=== PATIENT | female | born 1965 | race Caucasian/White ===

== ENCOUNTER 2023-05-07 07:19 | Outpatient (OUT) | payer OTHER, SELFPAY ==
[2023-05-07 07:39] LABS: Basophils Percent Auto 0.5 % (0.2-2.0); Eosinophils Absolute Auto 0.2 10^3/uL (0.0-0.7); Eosinophils Percent Auto 1.9 % (0.9-7.0); Hematocrit 39.6 % (36.0-48.0); Immature Granulocytes Abs Auto 0.01 10^3/uL (0.00-0.03); Immature Granulocytes Pct Auto 0.1 % (0.0-0.5); Lymphocytes Absolute Auto 2.8 10^3/uL (1.2-3.8); Lymphocytes Percent Auto 34.7 % (20.5-60.0); Mean Corpuscular HGB Conc 32.8 g/dL (29.9-35.2); Mean Corpuscular Hemoglobin 31.1 pg (26.7-34.0); Mean Corpuscular Volume 94.7 fL (81.0-99.0); Mean Platelet Volume 10.4 fL (9.5-13.5); Monocytes Absolute Auto 0.6 10^3/uL (0.3-0.8); Monocytes Percent Auto 7.7 % (1.7-12.0); Neutrophils Absolute Auto 4.5 10^3/uL (1.4-6.5); Neutrophils Percent Auto 55.1 % (43.0-75.0); Platelet Count 341 10^3/uL (150-450); Red Blood Count 4.18 10^6/uL (4.20-5.40); Red Cell Distribution Width 12.6 % (11.0-15.0); White Blood Count 8.1 10^3/uL (4.0-11.0)
[2023-05-07 07:59] LABS: Alanine Aminotransferase 26 U/L (14-59); Albumin Globulin Ratio 0.9; Albumin Level 3.5 g/dL (3.4-5.0); Alkaline Phosphatase 61 U/L (46-116); Anion Gap 12.6; Aspartate Amino Transferase 20 U/L (15-37); BUN Creatinine Ratio 15.7; Bilirubin Total 0.5 mg/dL (0.2-1.0); Calcium 8.7 mg/dL (8.5-10.1); Carbon Dioxide 29.8 mmol/L (21.0-32.0); Chloride 104 mmol/L (98-107); Cholesterol 268 mg/dL (<=200); Estimated GFR (African America >60 (>=60); Estimated GFR (Non-African Ame >60 (>=60); Glucose 94 mg/dL (74-106); HDL Cholesterol 45 mg/dL (40-60); Potassium 3.4 mmol/L (3.5-5.1); Sodium 143 mmol/L (136-145); Total Protein 7.5 g/dL (6.4-8.2); Triglycerides 478 mg/dL (<=150); VLDL CHOLESTEROL 95.6 mg/dL
[2023-05-08 15:26] LABS: LDL Cholesterol Direct 97 mg/dL
[2023-05-09 08:10] LABS: QuantiFERON-TB Gold Plus Negative (Negative)
== END 2023-05-07 07:20 | disposition home or self-care (01) ==
LOC: LAB 07:19
PROVIDERS: PCP Family Medicine; Visit Provider Nurse Practitioner
DX: L40.0 Psoriasis vulgaris (principal); Z79.899 Other long term (current) drug therapy
CPT/HCPCS: 36415; 80053; 80061; 83721; 85025; 86480

== ENCOUNTER 2023-06-09 10:51 | Observation (INO) | payer OTHER, SELFPAY ==
[2023-06-09] VITALS (26 sets, daily range): BP systolic 106–171; BP diastolic 71–92; PULSE 66–103; TEMP 36.5–36.8; O2SAT 95–100; BMI 25.0; BMI 26.2
--- NOTE | 2023-06-09 11:03 | ECG_ITS ---
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
--- NOTE | 2023-06-09 11:03 | XR_ITS ---
The [address] [address] Patient Name: ALLY GARCIA MRN: [id number] date: 1965 Sex: F Assigned Patient Location: ER Current Patient Location: ER Accession/Order Number: [id number] Exam Date: 06/09/2023 11:25 Report Date: 06/09/2023 11:52 At the request of: CAROLANN EUCEDA Procedure: XR chest 1V EXAM: XR chest 1V HISTORY: CP COMPARISON: None TECHNIQUE: AP view of the chest was obtained with portable technique at 1:22 AM. FINDINGS: Heart and mediastinal contours are unremarkable in appearance. No acute infiltrate or consolidations are seen. No obvious pneumothorax. Bony structures appear grossly intact. XR/XR chest 1V IMPRESSION: No acute process seen in the chest. Electronically authenticated by: ARCHANA HERNANDEZ Date: 06/09/2023 11:52
--- NOTE | 2023-06-09 11:04 | ED.CHESTPAI1 ---
HPI - Chest Pain General Chief Complaint: Chest Pain Stated Complaint: chest pain/jaw pain Time Seen by Provider: 06/09/23 10:59 Source: patient Mode of arrival: walk-in History of Present Illness HPI narrative: 57-year-old female presents for chest pressure. It started 1 hour ago and it has been continuous since then and it started when she was getting ready to go into the shower. It goes up into her neck and jaw bilaterally. No back pain or shortness of breath. No fever cough or palpitations. She has never had symptoms like this before. Related Data Home Medications ?Medication ?Instructions ?Recorded ?Confirmed guselkumab 100 mg/mL subcutaneous 100 mg subcut .Q8W 06/09/23 06/09/23 auto-injector (Tremfya) Allergies Allergy/AdvReac Type Severity Reaction Status Date / Time No Known Drug Allergies Allergy Verified 06/09/23 10:57 Review of Systems ROS Narrative A ten point review of systems is negative except as noted above. Exam Narrative Exam Narrative: Nurses note and vital signs reviewed and patient is not hypoxic. General: The patient appears well and in no apparent distress. Patient is resting comfortably on cart. Skin: Warm, dry, no pallor noted. There is no rash noted. Head: Normocephalic, atraumatic Eye: Normal conjunctiva, no drainage Ears, Nose, Mouth, and Throat: oral mucosa is moist. Nares patent. Cardiovascular: Regular Rate and Rhythm Respiratory: Patient is in no distress, no accessory muscle use, lungs are clear to auscultation, no wheezing, rales or rhonchi Back: non-tender GI: Soft and nontender Musculoskeletal: The patient has no evidence of calf tenderness, no pitting edema, symmetrical pulses noted bilaterally Neurological: A&O, normal speech Psychiatric: Cooperative Constitutional Vital Signs, click to edit/add: Last Vital Signs Temp 97.8 F 06/09/23 10:54 Pulse 69 06/09/23 12:45 Resp 18 06/09/23 12:45 BP 114/76 06/09/23 12:45 Pulse Ox 98 06/09/23 12:45 O2 Del Method Room Air 06/09/23 11:03 Course Vital Signs Vital signs: Vital Signs Temperature 97.8 F 06/09/23 10:54 Pulse Rate 78 06/09/23 10:54 Respiratory Rate 16 06/09/23 10:54 Blood Pressure 159/92 H 06/09/23 10:54 Pulse Oximetry 99 06/09/23 10:54 Oxygen Delivery Method Room Air 06/09/23 10:54 Temperature 97.8 F 06/09/23 10:54 Pulse Rate 69 06/09/23 12:45 Respiratory Rate 18 06/09/23 12:45 Blood Pressure 114/76 06/09/23 12:45 Pulse Oximetry 98 06/09/23 12:45 Oxygen Delivery Method Room Air 06/09/23 11:03 MDM - Chest Pain MDM Narrative Medical decision making narrative: 2 sets of troponin are negative. Her symptoms are concerning and she will be admitted for observation. Findings discussed with the patient and her . Differential Diagnosis Differential diagnosis: Likely pneumothorax, unstable angina pectoris, atypical chest pain, st elevation myocardial infarction and chest pain Lab Data Attestation: I reviewed the patient's lab results. Labs: Lab Results 06/09/23 06/09/23 Range/Units 11:02 12:10 WBC 9.1 (4.0-11.0) 10^3/uL RBC 4.46 (4.20-5.40) 10^6/uL Hgb 13.8 (12.0-16.0) g/dL Hct 42.5 (36.0-48.0) % MCV 95.3 (81.0-99.0) fL MCH 30.9 (26.7-34.0) pg MCHC 32.5 (29.9-35.2) g/dL RDW 12.2 (11.0-15.0) % Plt Count 359 (150-450) 10^3/uL MPV 10.8 (9.5-13.5) fL Neut % (Auto) 57.3 (43.0-75.0) % Lymph % (Auto) 31.2 (20.5-60.0) % [place] % (Auto) 9.5 (1.7-12.0) % Eos % (Auto) 1.2 (0.9-7.0) % Baso % (Auto) 0.4 (0.2-2.0) % Neut # (Auto) 5.2 (1.4-6.5) 10^3/uL Lymph # (Auto) 2.8 (1.2-3.8) 10^3/uL [place] # (Auto) 0.9 H (0.3-0.8) 10^3/uL Eos # (Auto) 0.1 (0.0-0.7) 10^3/uL Baso # (Auto) 0.0 (0.0-0.1) 10^3/uL Abs Immat Gran (auto) 0.04 H (0.00-0.03) 10^3/uL Imm/Tot Granulo (auto) 0.4 (0.0-0.5) % Sodium 138 (136-145) mmol/L Potassium 3.7 (3.5-5.1) mmol/L Chloride 100 (98-107) mmol/L Carbon Dioxide 22.0 (21.0-32.0) mmol/L Anion Gap 19.7 BUN 17.0 (7.0-18.0) mg/dL Creatinine 0.83 (0.55-1.02) mg/dL Est GFR ( Amer) >60 (>=60) Est GFR (Non-Af Amer) >60 (>=60) BUN/Creatinine Ratio 20.5 Glucose 82 (74-106) mg/dL Calcium 9.4 (8.5-10.1) mg/dL Troponin I High Sens 5.1 5.3 (4.0-51.3) pg/mL Imaging Data Chest x-ray: Radiologist's impression: ITS Impressions Chest X-Ray 06/09/23 11:03 IMPRESSION: No acute process seen in the chest. Electronically authenticated by: ARCHANA HERNANDEZ Date: 06/09/2023 11:52 ECG Data Attestation: I personally reviewed and interpreted this ECG as follows: (EKG on my interpretation shows normal sinus rhythm without acute change and a rate of 70.) Heart Score History: Highly Suspicious ECG: Normal Age: >45-<65 years Risk Factors: 1 or 2 Risk Factors Troponin: <Normal Limit Total Heart Score Recommendations & Risks:: 4 Discharge Plan Discharge Chief Complaint: Chest Pain Clinical Impression: Chest pain Patient Disposition: Admitted as Observation Time of Disposition Decision: 13:14 Condition: Good Prescriptions / Home Meds: No Action Tremfya 100 mg/mL auto-injector 100 mg SUBCUT .Q8W Print Language: Armenian Referrals: Matthew Arias MD [Primary Care Provider] - 1 week
[2023-06-09] MEDS: ASPIRIN 81 MG TAB.CHEW 324 MG PO (11:12)
[2023-06-09] MEDS: NITROGLYCERIN 0.4 MG BOTTLE 0.400000000000000022 MG SL (11:12)
[2023-06-09 11:18] LABS: Basophils Percent Auto 0.4 % (0.2-2.0); Eosinophils Absolute Auto 0.1 10^3/uL (0.0-0.7); Eosinophils Percent Auto 1.2 % (0.9-7.0); Hematocrit 42.5 % (36.0-48.0); Hemoglobin 13.8 g/dL (12.0-16.0); Immature Granulocytes Abs Auto 0.04 10^3/uL (0.00-0.03); Immature Granulocytes Pct Auto 0.4 % (0.0-0.5); Lymphocytes Absolute Auto 2.8 10^3/uL (1.2-3.8); Lymphocytes Percent Auto 31.2 % (20.5-60.0); Mean Corpuscular HGB Conc 32.5 g/dL (29.9-35.2); Mean Corpuscular Hemoglobin 30.9 pg (26.7-34.0); Mean Corpuscular Volume 95.3 fL (81.0-99.0); Mean Platelet Volume 10.8 fL (9.5-13.5); Monocytes Absolute Auto 0.9 10^3/uL (0.3-0.8); Monocytes Percent Auto 9.5 % (1.7-12.0); Neutrophils Absolute Auto 5.2 10^3/uL (1.4-6.5); Neutrophils Percent Auto 57.3 % (43.0-75.0); Platelet Count 359 10^3/uL (150-450); Red Blood Count 4.46 10^6/uL (4.20-5.40); Red Cell Distribution Width 12.2 % (11.0-15.0); White Blood Count 9.1 10^3/uL (4.0-11.0)
--- OUTSIDE RECORDS SUMMARY | 2023-06-09 11:18 | XMS_ITS | CCD ---
Author Organization [facility] Care Team Providers Care Principal Network Architect Name Role Phone TRELL, DOCTOR Admitting Unavailable TRELL, DOCTOR Attending Unavailable ALE ., DR WHITEHEAD Primary Care Unavailable TRELL, DR XIE Consulting Unavailable Ventura Aguilera MD Primary Care Provider [phone] MABEL TREVINO Referring Unavailable VENTURA AGUILERA Primary Care Unavailable Medications Current Medications Medication Drug Class(es) Dates Sig (Normalized) Sig (Original) 1 ml guselkumab 100 mg/ml auto-injector (2 sources) Interleukin-23 Antagonist Start: 12-18-2021 TREMFYA 100 mg/mL auto-injector Problems Active Problems Problem Classification Problem Date Documented Da te Episodic/Chronic Other aftercare (1 source) Other mcc (current) drug therapy; Translations: [OTH COTTAGE PARENT CURRENT DRUG THERAPY] Onset: 04-29-2022 Episodic Other inflammatory condition of skin (4 sources) Psoriasis vulgaris; Translations: [PSORIASIS VULGARIS] Onset: 04-25-2022 Chronic Other inflammatory condition of skin (1 source) Other psoriatic arthropathy; Translations: [OTHER PSORIATIC ARTHROPATHY] Onset: 04-29-2022 Chronic Other screening for suspected conditions (not mental disorders or infectious disease) (2 sources) Patient encounter status; Translations: [Encounter for screening mammogram for malignant neoplasm of breast] Onset: 03-24-2023 03-12-2023 Episodic Past or Other Problems Problem Classification Problem Date Documented Da te Episodic/Chronic Unclassified (2 sources) Onset: 01-27-2023 01-27-2023 Results Test Name Value Interpretation Reference Range Facil ity MAMM SCREENING BILATERAL W 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 COMPARISON: 03/21/2022, 02/13/2021 TECHNIQUE: Bilateral digital tomosynthesis MLO and CC views of the breasts were obtained, with creation of synthetic 2D views. Computer aided detection was utilized. FINDINGS: There are scattered areas of fibroglandular density. There are no suspicious masses, calcifications, or areas of architectural distortions. IMPRESSION: No mammographic evidence of malignancy. BI-RADS: BI-RADS 1 - Negative Recommendation: Routine screening mammogram in 1 year. Finalized by Lynn Crocker MD on 03/24/2023 4:04 PM 1 b MAMM 1 YR Normal [facility] QUANTIFERON TB GOLD PLUSon 0 04-27-2022 QuantiFERON Criteria Comment Normal [facility] Comment on above: Result Comment: Giovani tiFERON-TB Gold Plus is a qualitative indirect test for M tuberculosis infection (including disease) and is intended for use in conjunction with risk assessment, radiography, and other medical and diagnostic evaluations. The QuantiFERON-TB Gold Plus result is determined by subtracting the Nil value from either TB antigen (Ag) value. The Mitogen tube serves as a control for the test. Performed By: #### Q NTTB #### [facility] [address] [place] [address] Dr. Altagracia Martinez QuantiFERON Incubation Incubation performed. Normal [facility] Comment on above: Performed By: #### Q NTTB #### [facility] [address] [place] [address] Dr. Altagracia Martinez QuantiFERON Mitogen Value >10.00 Normal [facility] Comment on above: Performed By: #### Q NTTB #### [facility] [address] [place] [address] Dr. Altagracia Martinez QuantiFERON Nil Value 0.03 IU/mL Normal [facility] Comment on above: Performed By: #### Q NTTB #### [facility] [address] [place] [address] Dr. Altagracia Martinez QuantiFERON TB1 Ag Value 0.02 IU/mL Normal [facility] Comment on above: Performed By: #### Q NTTB #### [facility] [address] [place] [address] Dr. Altagracia Martinez QuantiFERON TB2 Ag Value 0.02 IU/mL Normal [facility] Comment on above: Performed By: #### Q NTTB #### [facility] [address] [place] [address] Dr. Altagracia Martinez QuantiFERON-TB Gold Plus Negative Normal Negative [facility] Comment on above: Result Comment: No r esponse to M tuberculosis antigens detected. Infection with M tuberculosis is unlikely, but high risk individuals should be considered for additional testing (ATS/IDSA/CDC Clinical Practice Guidelines, 2017). The reference range is an Antigen minus Nil result of <0.35 IU/mL. Chemiluminescence immunoassay methodology Performed By: #### Q NTTB #### [facility] [address] [place] [address] Dr. Altagracia Martinez CBC AUTO DIFFon 04-25-2022 BASO # 0.0 103/ul Normal 0.0-0.1 [facility] Comment on above: Performed By: #### C BC #### [facility] [address] [place] [address] Dr. Altagracia Martinez Basophils/100 WBC (Bld) 0.4 % Normal 0.2-2.0 [facility] Comment on above: Performed By: #### C BC #### [facility] [address] [place] [address] Dr. Altagracia Martinez EO # 0.1 103/ul Normal 0.0-0.7 [facility] Comment on above: Performed By: #### C BC #### [facility] [address] [place] [address] Dr. Altagracia Martinez Eosinophils/100 WBC (Bld) 1.8 % Normal 0.9-7.0 [facility] Comment on above: Performed By: #### C BC #### [facility] [address] [place] [address] Dr. Altagracia Martinez Erythrocyte distribution width (RBC) [Ratio] 12.4 % Normal 11.0-15.0 [facility] Comment on above: Performed By: #### C BC #### [facility] [address] [place] [address] Dr. Altagracia Martinez Hematocrit (Bld) [Volume fraction] 40.5 % Normal 36.0-48.0 [facility] Comment on above: Performed By: #### C BC #### [facility] [address] [place] [address] Dr. Altagracia Martinez Hemoglobin (Bld) [Mass/Vol] 13.1 g/dL Normal 12.0-16.0 [facility] Comment on above: Performed By: #### C BC #### [facility] [address] [place] [address] Dr. Altagracia Martinez IG # 0.02 10e3/ul Normal 0.00-0.03 [facility] Comment on above: Performed By: #### C BC #### [facility] [address] [place] [address] Dr. Altagracia Martinez IG % 0.3 % Normal 0.0-0.5 [facility] Comment on above: Performed By: #### C BC #### [facility] [address] [place] [address] Dr. Altagracia Martinez LYMPH # 2.8 103/ul Normal 1.2-3.8 [facility] Comment on above: Performed By: #### C BC #### [facility] [address] [place] [address] Dr. Altagracia Martinez Lymphocytes/100 WBC (Bld) 39.5 % Normal 20.5-60.0 [facility] Comment on above: Performed By: #### C BC #### [facility] [address] [place] [address] Dr. Altagracia Martinez MANUAL DIFF REQ NO Normal [facility] Comment on above: Performed By: #### C BC #### [facility] [address] [place] [address] Dr. Altagracia Martinez MCH (RBC) [Entitic mass] 30.3 pg Normal 26.7-34.0 [facility] Comment on above: Performed By: #### C BC #### [facility] [address] [place] [address] Dr. Altagracia Martinez MCHC (RBC) [Mass/Vol] 32.3 g/dL Normal 29.9-35.2 [facility] Comment on above: Performed By: #### C BC #### [facility] [address] [place] [address] Dr. Altagracia Martinez MCV (RBC) [Entitic vol] 93.8 fL Normal 81.0-99.0 [facility] Comment on above: Performed By: #### C BC #### [facility] [address] [place] [address] Dr. Altagracia Martinez MONO # 0.7 103/ul Normal 0.3-0.8 [facility] Comment on above: Performed By: #### C BC #### [facility] [address] [place] [address] Dr. Altagracia Martinez Monocytes/100 WBC (Bld) 9.6 % Normal 1.7-12.0 [facility] Comment on above: Performed By: #### C BC #### [facility] [address] [place] [address] Dr. Altagracia Martinez NEUT # 3.5 103/ul Normal 1.4-6.5 [facility] Comment on above: Performed By: #### C BC #### [facility] [address] [place] [address] Dr. Altagracia Martinez Neutrophils/100 WBC (Bld) 48.4 % Normal 43.0-75.0 [facility] Comment on above: Performed By: #### C BC #### [facility] [address] [place] [address] Dr. Altagracia Martinez Platelet mean volume (Bld) [Entitic vol] 10.4 fL Normal 9.5-13.5 [facility] Comment on above: Performed By: #### C BC #### [facility] [address] [place] [address] Dr. Altagracia Martinez PLT 350 103/ul Normal 150-450 [facility] Comment on above: Performed By: #### C BC #### [facility] [address] [place] [address] Dr. Altagracia Martinez RBC 4.32 106/ul Normal 4.20-5.40 [facility] Comment on above: Performed By: #### C BC #### [facility] [address] [address] [address] Altagracia Martinez WBC 7.2 103/ul Normal 4.0-11.0 [facility] Comment on above: Performed By: #### C BC #### [facility] [address] [address] [address] Altagracia Martinez LIPID PROFILEon 04-25-2022 CHOL-HDL RATIO NORM SEE BELOW Normal [facility] Comment on above: Result Comment: 3.3 - 4.4 LOW RISK 4.4 - 7.1 AVERAGE RISK 7.1 - 11.0 MODERATE RISK >11.0 HIGH RISK Performed By: #### C MP, LIPID #### [facility] [address] [place] [address] Dr. Altagracia Martinez Cholesterol [Mass/Vol] 266 mg/dL Critically high <=200 [facility] Comment on above: Performed By: #### C MP, LIPID #### [facility] [address] [place] [address] Dr. Altagracia Martinez Cholesterol in HDL [Mass/Vol] 40 mg/dL Normal 40-60 [facility] Comment on above: Performed By: #### C MP, LIPID #### [facility] [address] [place] [address] Dr. Altagracia Martinez Cholesterol in LDL [Mass/Vol] 163.4 mg/dL Normal [facility] Comment on above: Performed By: #### C MP, LIPID #### [facility] [address] [address] [address] Altagracia Martinez Cholesterol.total/C holesterol in HDL [Mass ratio] 6.7 {ratio} Normal [facility] Comment on above: Performed By: #### C MP, LIPID #### [facility] [address] [place] [address] Dr. Altagracia Martinez HDL NORMAL > or = 60 mg/dl - LOW CARDIOVASCULAR RISK <40 mg/dl - HIGH CARDIOVASCULAR RISK Normal [facility] Comment on above: Performed By: #### C MP, LIPID #### [facility] [address] [place], [place] [id number] Dr. Altagracia Martinez LDL CALC NORMAL SEE BELOW Normal [facility] Comment on above: Result Comment: <100 mg/dl OPTIMAL 100 - 129 mg/dl NEAR OR ABOVE OPTIMAL 130 - 159 mg/dl BORDERLINE HIGH 160 - 189 mg/dl HIGH >190 mg/dl VERY HIGH Performed By: #### C MP, LIPID #### [facility] [address] [address] [address] Altagracia Martinez Triglyceride [Mass/Vol] 313 mg/dL Critically high <=150 [facility] Comment on above: Performed By: #### C MP, LIPID #### [facility] [address] [address] [address] Altagracia Martinez VLDL CALC 62.6 mg/dL Normal [facility] Comment on above: Performed By: #### C MP, LIPID #### [facility] [address] [place] [address] Dr. Altagracia Martinez PROF 14(COMP METB)on 023 Albumin [Mass/Vol] 4.0 g/dL Normal 3.4-5.0 [facility] Comment on above: Performed By: #### C MP, LIPID #### [facility] [address] [place] [address] Dr. Altagracia Martinez Albumin/Globulin [Mass ratio] 1.1 {ratio} Normal [facility] Comment on above: Performed By: #### C MP, LIPID #### [facility] [address] [place] [address] Dr. Altagracia Martinez ALP [Catalytic activity/Vol] 56 U/L Normal 46-116 [facility] Comment on above: Performed By: #### C MP, LIPID #### [facility] [address] [place] [address] Dr. Altagracia Martinez ALT [Catalytic activity/Vol] 24 U/L Normal 14-59 [facility] Comment on above: Performed By: #### C MP, LIPID #### [facility] [address] [place] [address] Dr. Altagracia Martinez Anion gap [Moles/Vol] 11.5 mmol/L Normal [facility] Comment on above: Performed By: #### C MP, LIPID #### [facility] [address] [address] [address] Altagracia Martinez AST [Catalytic activity/Vol] 21 U/L Normal 15-37 [facility] Comment on above: Performed By: #### C MP, LIPID #### [facility] [address] [address] [address] Altagracia Martinez Bilirubin [Mass/Vol] 0.4 mg/dL Normal 0.2-1.0 [facility] Comment on above: Performed By: #### C MP, LIPID #### [facility] [address] [address] [address] Altagracia Martinez Calcium [Mass/Vol] 9.3 mg/dL Normal 8.5-10.1 [facility] Comment on above: Performed By: #### C MP, LIPID #### [facility] [address] [address] [address] Altagracia Martinez Chloride [Moles/Vol] 105 mmol/L Normal 98-107 [facility] Comment on above: Performed By: #### C MP, LIPID #### [facility] [address] [address] [address] Altagracia Martinez CO2 [Moles/Vol] 28.4 mmol/L Normal 21.0-32.0 [facility] Comment on above: Performed By: #### C MP, LIPID #### [facility] [address] [address] [address] Altagracia Martinez Creatinine [Mass/Vol] 0.71 mg/dL Normal 0.55-1.02 [facility] Comment on above: Performed By: #### C MP, LIPID #### [facility] [address] [address] [address] Altagracia Martinez EGFR-AF MOLDOVAN >60 Normal >=60 [facility] Comment on above: Performed By: #### C MP, LIPID #### [facility] [address] [address] [address] Altagracia Martinez EGFR-NON AF MOLDOVAN >60 Normal >=60 [facility] Comment on above: Performed By: #### C MP, LIPID #### [facility] [address] [address] [address] Altagracia Martinez Globulin (S) [Mass/Vol] 3.5 g/dL Normal [facility] Comment on above: Performed By: #### C MP, LIPID #### [facility] [address] [address] [address] Altagracia Martinez Glucose [Mass/Vol] 95 mg/dL Normal 74-106 [facility] Comment on above: Performed By: #### C MP, LIPID #### [facility] [address] [address] [address] Altagracai Martinez Potassium [Moles/Vol] 3.9 mmol/L Normal 3.5-5.1 [facility] Comment on above: Performed By: #### C MP, LIPID #### [facility] [address] [place] [address] Dr. Altagracia Martinez Protein [Mass/Vol] 7.5 g/dL Normal 6.4-8.2 [facility] Comment on above: Performed By: #### C MP, LIPID #### [facility] [address] [address] [address] Altagracia Martinez Sodium [Moles/Vol] 141 mmol/L Normal 136-145 [facility] Comment on above: Performed By: #### C MP, LIPID #### [facility] [address] [place] [address] Dr. Altagracia Martinez Urea nitrogen [Mass/Vol] 14.0 mg/dL Normal 7.0-18.0 [facility] Comment on above: Performed By: #### C MP, LIPID #### [facility] [address] [place] [address] Dr. Altagracia Martinez Urea nitrogen/Creatinine [Mass ratio] 19.7 mg/mg Normal [facility] Comment on above: Performed By: #### C MP, LIPID #### [facility] [address] [address] [address] Altagracia Martinez Encounters Encounter Date Encounter Type Care Provider Facility Start: 03-24-2023 End: 03-25-2023 [facility] MABEL TREVINO [facility] Start: 03-12-2023 Orders Only Astrid Price LPN [facility] Comment on above: Encounter for screen ing mammogram for breast cancer (Primary Dx) Start: 04-25-2022 End: 04-26-[address] DOCTOR CAI Facility:[facility] Procedures Date Procedure Procedure Detail Performing Clinician Start: 01-27-2023 Microscopic observat ion [Identifier] in Cervix by Cyto stain Astrid Price LPN Plan of Treatment Date Care Activity Detail Author Start: 01-27-2026 Screening for malign ant neoplasm of cervix Pap Smear [facility] Start: 01-28-2024 Adult BMI Follow Up Plan Adult BMI Follow Up Plan [facility] Start: 01-28-2024 Adult BMI Screening Adult BMI Screen ing [facility] Start: 01-28-2024 Tobacco Screening Tobacco Screening [facility] Start: 03-24-2023 End: 03-24-2023 Patient encounter procedure 03/24/2023 1:15 PM EST Appointment [facility] [place] - Mammogram DEXA [address] [place] [id number] [facility] - Mammogram DEXA Start: 03-12-2023 End: 03-12-2024 DBT Breast - bilateral screening Mammography screening bilateral with CAD Imaging Routine Encounter for screening mammogram for breast cancer Expected: 03/12/2023, Expires: 03/12/2024 [facility] Work Phone: Comment on above: Expected: 03/12/2023 , Expires: 03/12/2024 Start: 10-25-2022 Influenza vaccination Influenza Vacc ine [facility] Start: 2016 Administration of varicella zoster vaccine Zoster (Shingles) Vaccine (1 of 2) [facility] Start: 1985 DTaP,Tdap and Td Vac cines (1 - Tdap) DTaP,Tdap and Td Vaccines (1 - Tdap) [facility] Start: 1978 Depression Screening Depression Scre ening [facility] Payers Date Payer Category Payer Private Health Insurance [facility] [id number] 2022-Present [phone] [address] [place] [address] [id number] 1966 Unknown [id number] 1966 Unknown [id number] 1959 Unknown [id number] Social History Date Type Detail Facility Start: 01-21-2022 Tobacco smoking stat [facility] Never smoked tobacco [facility] Start: 01-21-2022 Tobacco use and exposure Smokeless tobacco non-user [facility] Start: 01-27-2023 Alcohol intake Current drinke r of alcohol (finding) [facility] Start: 01-27-2023 History of Social function [facility] Start: 01-27-2023 Tobacco use panel [facility] Within the past 12 months we worried whether our food would run out before we got money to buy more. Never True [facility] Start: 01-21-2022 Alcohol Comment socially [facility] Start: 1965 Sex Assigned At Not on file P [facility] Note 03-12-2023 Telephone Encounter - Karin Diana - 03/12/2023 2:03 PM ESTTelephone Encounter - Astrid Price LPN - 03/12/2023 2:03 PM EST Note Date & Type Note Facility 03-12-2023 Miscellaneous Notes Formattin g of this note might be different from the original. Central Scheduling called asking for Mammogram order. Pt saw Dr Trevino on 01/27/23 for Annual Exam. Order placed documented in this encounter [facility] Telephone encounter Note 03-12-2023 Telephone Encounter - Karin Diana - 03/12/2023 2:03 PM EST Note Date & Type Note Facility 03-12-2023 Telephone encount er Note Central Scheduling called asking for Mammogram order. Pt saw Dr Trevino on 01/27/23 for Annual Exam. [facility] Telephone encounter Note 03-12-2023 Telephone Encounter - Astrid Price LPN - 03/12/2023 2:03 PM EST Note Date & Type Note Facility 03-12-2023 Telephone encount er Note [facility] Evaluation note Note Date & Type Note Facility Evaluation note Diagnosis Encounter for screening mammogram for breast cancer- Primary documented in this encounter [facility] Instructions Note Date & Type Note Facility Instructions Not on filedocumented in this en counter [facility] Instructions Note Date & Type Note Facility Instructions Not on filedocumented in this en counter [facility] Summary Purpose Family History No Family History Records FoundNo Family History Records Found Advance Directives No Advanced Directives Records FoundNo Advanced Directives Records Found Additional Source Comments INFORMATION SOURCE (unrecogn ized section and content) DATE CREATED AUTHOR 05/02/2022 [facility] DATE CREATED AUTHOR AUTHOR'S ORGANIZ ATION 03/28/2023 [facility] Care Teams (unrecognized sec tion and content) Principal Network Architect Relationship Specialty Start Date End Date Ventura Aguilera MD [address] [place] [address] PCP - General Family Medicine 03/19/22 FOR RECORDS PERTAINING TO PATIENTS WHO ARE OR HAVE BEEN ENROLLED IN A CHEMICAL DEPENDENCY/SUBSTANCEABUSE PROGRAM, SOME INFORMATION MAY BE OMITTED. This clinical summary was aggregated from multiple sources. Caution should be exercised in using it in the provision of clinical care. This summary normalizes information from multiple sources, and as a consequence, information in this document may materially change the coding, format and clinical context of patient data. In addition, data may be omitted in some cases. CLINICAL DECISIONS SHOULD BE BASED ON THE PRIMARY CLINICAL RECORDS. [facility] [employer] [facility]. provides no warranty or guarantee of the accuracy or completeness of information in this document.
[2023-06-09 11:51] LABS: Anion Gap 19.7; BUN Creatinine Ratio 20.5; Calcium 9.4 mg/dL (8.5-10.1); Chloride 100 mmol/L (98-107); Estimated GFR (African America >60 (>=60); Estimated GFR (Non-African Ame >60 (>=60); Glucose 82 mg/dL (74-106); Potassium 3.7 mmol/L (3.5-5.1); Sodium 138 mmol/L (136-145); Troponin I High Sensitivity 5.1 pg/mL (4.0-51.3)
[2023-06-09 12:34] LABS: Troponin I High Sensitivity 5.3 pg/mL (4.0-51.3)
--- OUTSIDE RECORDS SUMMARY | 2023-06-09 13:42 | XMS_ITS | CCD ---
Author Organization [facility] Care Team Providers Care Vice President Risk Management Name Role Phone TRELL, DOCTOR Admitting Unavailable TRELL, DOCTOR Attending Unavailable ALE ., DR WHITEHEAD Primary Care Unavailable TRELL, DR XIE Consulting Unavailable Ventura Aguilera MD Primary Care Provider [phone] MABEL TREVINO Referring Unavailable VENTURA AGUILERA Primary Care Unavailable Medications Current Medications Medication Drug Class(es) Dates Sig (Normalized) Sig (Original) 1 ml guselkumab 100 mg/ml auto-injector (2 sources) Interleukin-23 Antagonist Start: 12-18-2021 TREMFYA 100 mg/mL auto-injector Problems Active Problems Problem Classification Problem Date Documented Da te Episodic/Chronic Other aftercare (1 source) Other senior care (current) drug therapy; Translations: [OTH 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 Performed By: #### Q NTTB #### [facility] [address] [place] [address] Dr. Altagracia Martinez QuantiFERON Incubation Incubation performed. Normal [facility] Comment on above: Performed By: #### Q NTTB #### [facility] [address] [place] [address] Dr. Altagracia Martinez QuantiFERON Mitogen Value >10.00 Normal [facility] Comment on above: Performed By: #### Q NTTB #### [facility] [address] [place] [address] Dr. Altagracia Martinez QuantiFERON Nil Value 0.03 IU/mL Normal [facility] Comment on above: Performed By: #### Q NTTB #### [facility] [address] [place] [address] Dr. Altagracia Martinez QuantiFERON TB1 Ag Value 0.02 IU/mL Normal [facility] Comment on above: Performed By: #### Q NTTB #### [facility] [address] [place] [address] Dr. Altagracia Martinez QuantiFERON TB2 Ag Value 0.02 IU/mL Normal [facility] Comment on above: Performed By: #### Q NTTB #### [facility] [address] [place] [address] Dr. Altagracia Martinez QuantiFERON-TB Gold Plus Negative Normal Negative [facility] Comment on above: Result Comment: No r esponse to M tuberculosis antigens detected. Infection with M tuberculosis is unlikely, but high risk individuals should be considered for additional testing (ATS/IDSA/CDC Clinical Practice Guidelines, 2017). The reference range is an Antigen minus Nil result of <0.35 IU/mL. Chemiluminescence immunoassay methodology Performed By: #### Q NTTB #### [facility] [address] [place] [address] Dr. Altagracia Martinez CBC AUTO DIFFon 04-25-2022 BASO # 0.0 103/ul Normal 0.0-0.1 [facility] Comment on above: Performed By: #### C BC #### [facility] [address] [place] [address] Dr. Altagracia Martinez Basophils/100 WBC (Bld) 0.4 % Normal 0.2-2.0 [facility] Comment on above: Performed By: #### C BC #### [facility] [address] [place] [address] Dr. Altagracia Martinez EO # 0.1 103/ul Normal 0.0-0.7 [facility] Comment on above: Performed By: #### C BC #### [facility] [address] [place] [address] Dr. Altagracia Martinez Eosinophils/100 WBC (Bld) 1.8 % Normal 0.9-7.0 [facility] Comment on above: Performed By: #### C BC #### [facility] [address] [place] [address] Dr. Altagracia Martinez Erythrocyte distribution width (RBC) [Ratio] 12.4 % Normal 11.0-15.0 [facility] Comment on above: Performed By: #### C BC #### [facility] [address] [place] [address] Dr. Altagracia Martinez Hematocrit (Bld) [Volume fraction] 40.5 % Normal 36.0-48.0 [facility] Comment on above: Performed By: #### C BC #### [facility] [address] [place] [address] Dr. Altagracia Martinez Hemoglobin (Bld) [Mass/Vol] 13.1 g/dL Normal 12.0-16.0 [facility] Comment on above: Performed By: #### C BC #### [facility] [address] [place] [address] Dr. Altagracia Martinez IG # 0.02 10e3/ul Normal 0.00-0.03 [facility] Comment on above: Performed By: #### C BC #### [facility] [address] [place] [address] Dr. Altagracia Martinez IG % 0.3 % Normal 0.0-0.5 [facility] Comment on above: Performed By: #### C BC #### [facility] [address] [place] [address] Dr. Altagracia Martinez LYMPH # 2.8 103/ul Normal 1.2-3.8 [facility] Comment on above: Performed By: #### C BC #### [facility] [address] [place] [address] Dr. Altagracia Martinez Lymphocytes/100 WBC (Bld) 39.5 % Normal 20.5-60.0 [facility] Comment on above: Performed By: #### C BC #### [facility] [address] [place] [address] Dr. Altagracia Martinez MANUAL DIFF REQ NO Normal [facility] Comment on above: Performed By: #### C BC #### [facility] [address] [place] [address] Dr. Altagracia Martinez MCH (RBC) [Entitic mass] 30.3 pg Normal 26.7-34.0 [facility] Comment on above: Performed By: #### C BC #### [facility] [address] [place] [address] Dr. Altagracia Martinez MCHC (RBC) [Mass/Vol] 32.3 g/dL Normal 29.9-35.2 [facility] Comment on above: Performed By: #### C BC #### [facility] [address] [place] [address] Dr. Altagracia Martinez MCV (RBC) [Entitic vol] 93.8 fL Normal 81.0-99.0 [facility] Comment on above: Performed By: #### C BC #### [facility] [address] [place] [address] Dr. Altagracia Martinez MONO # 0.7 103/ul Normal 0.3-0.8 [facility] Comment on above: Performed By: #### C BC #### [facility] [address] [place] [address] Dr. Altagracia Martinez Monocytes/100 WBC (Bld) 9.6 % Normal 1.7-12.0 [facility] Comment on above: Performed By: #### C BC #### [facility] [address] [place] [address] Dr. Altagracia Martinez NEUT # 3.5 103/ul Normal 1.4-6.5 [facility] Comment on above: Performed By: #### C BC #### [facility] [address] [place] [address] Dr. Altagracia Martinez Neutrophils/100 WBC (Bld) 48.4 % Normal 43.0-75.0 [facility] Comment on above: Performed By: #### C BC #### [facility] [address] [place] [address] Dr. Altagracia Martinez Platelet mean volume (Bld) [Entitic vol] 10.4 fL Normal 9.5-13.5 [facility] Comment on above: Performed By: #### C BC #### [facility] [address] [place] [address] Dr. Altagracia Martinez PLT 350 103/ul Normal 150-450 [facility] Comment on above: Performed By: #### C BC #### [facility] [address] [place] [address] Dr. Altagracia Martinez RBC 4.32 106/ul Normal 4.20-5.40 [facility] Comment on above: Performed By: #### C BC #### [facility] [address] [address] [address] Altagracia Martinez WBC 7.2 103/ul Normal 4.0-11.0 [facility] Comment on above: Performed By: #### C BC #### [facility] [address] [address] [address] Altagracia Martinez LIPID PROFILEon 04-25-2022 CHOL-HDL RATIO NORM SEE BELOW Normal [facility] Comment on above: Result Comment: 3.3 - 4.4 LOW RISK 4.4 - 7.1 AVERAGE RISK 7.1 - 11.0 MODERATE RISK >11.0 HIGH RISK Performed By: #### C MP, LIPID #### [facility] [address] [place] [address] Dr. Altagracia Martinez Cholesterol [Mass/Vol] 266 mg/dL Critically high <=200 [facility] Comment on above: Performed By: #### C MP, LIPID #### [facility] [address] [place] [address] Dr. Altagracia Martinez Cholesterol in HDL [Mass/Vol] 40 mg/dL Normal 40-60 [facility] Comment on above: Performed By: #### C MP, LIPID #### [facility] [address] [place] [address] Dr. Altagracia Martinez Cholesterol in LDL [Mass/Vol] 163.4 mg/dL Normal [facility] Comment on above: Performed By: #### C MP, LIPID #### [facility] [address] [address] [address] Altagracia Martinez Cholesterol.total/C holesterol in HDL [Mass ratio] 6.7 {ratio} Normal [facility] Comment on above: Performed By: #### C MP, LIPID #### [facility] [address] [place] [address] Dr. Altagracia Martinez HDL NORMAL > or = 60 mg/dl - LOW CARDIOVASCULAR RISK <40 mg/dl - HIGH CARDIOVASCULAR RISK Normal [facility] Comment on above: Performed By: #### C MP, LIPID #### [facility] [address] [place], [place] [id number] Dr. Altagracia Martinez LDL CALC NORMAL SEE BELOW Normal [facility] Comment on above: Result Comment: <100 mg/dl OPTIMAL 100 - 129 mg/dl NEAR OR ABOVE OPTIMAL 130 - 159 mg/dl BORDERLINE HIGH 160 - 189 mg/dl HIGH >190 mg/dl VERY HIGH Performed By: #### C MP, LIPID #### [facility] [address] [address] [address] Altagracia Martinez Triglyceride [Mass/Vol] 313 mg/dL Critically high <=150 [facility] Comment on above: Performed By: #### C MP, LIPID #### [facility] [address] [address] [address] Altagracia Martinez VLDL CALC 62.6 mg/dL Normal [facility] Comment on above: Performed By: #### C MP, LIPID #### [facility] [address] [place] [address] Dr. Altagracia Martinez PROF 14(COMP METB)on 023 Albumin [Mass/Vol] 4.0 g/dL Normal 3.4-5.0 [facility] Comment on above: Performed By: #### C MP, LIPID #### [facility] [address] [place] [address] Dr. Altagracia Martinez Albumin/Globulin [Mass ratio] 1.1 {ratio} Normal [facility] Comment on above: Performed By: #### C MP, LIPID #### [facility] [address] [place] [address] Dr. Altagracia Martinez ALP [Catalytic activity/Vol] 56 U/L Normal 46-116 [facility] Comment on above: Performed By: #### C MP, LIPID #### [facility] [address] [place] [address] Dr. Altagracia Martinez ALT [Catalytic activity/Vol] 24 U/L Normal 14-59 [facility] Comment on above: Performed By: #### C MP, LIPID #### [facility] [address] [place] [address] Dr. Altagracia Martinez Anion gap [Moles/Vol] 11.5 mmol/L Normal [facility] Comment on above: Performed By: #### C MP, LIPID #### [facility] [address] [address] [address] Altagracia Martinez AST [Catalytic activity/Vol] 21 U/L Normal 15-37 [facility] Comment on above: Performed By: #### C MP, LIPID #### [facility] [address] [address] [address] Altagracia Martinez Bilirubin [Mass/Vol] 0.4 mg/dL Normal 0.2-1.0 [facility] Comment on above: Performed By: #### C MP, LIPID #### [facility] [address] [address] [address] Altagracia Martinez Calcium [Mass/Vol] 9.3 mg/dL Normal 8.5-10.1 [facility] Comment on above: Performed By: #### C MP, LIPID #### [facility] [address] [address] [address] Altagracia Martinez Chloride [Moles/Vol] 105 mmol/L Normal 98-107 [facility] Comment on above: Performed By: #### C MP, LIPID #### [facility] [address] [address] [address] Altagracia Martinez CO2 [Moles/Vol] 28.4 mmol/L Normal 21.0-32.0 [facility] Comment on above: Performed By: #### C MP, LIPID #### [facility] [address] [address] [address] Altagracia Martinez Creatinine [Mass/Vol] 0.71 mg/dL Normal 0.55-1.02 [facility] Comment on above: Performed By: #### C MP, LIPID #### [facility] [address] [address] [address] Altagracia Martinez EGFR-AF ZIMBABWEAN >60 Normal >=60 [facility] Comment on above: Performed By: #### C MP, LIPID #### [facility] [address] [address] [address] Altagracia Martinez EGFR-NON AF ZIMBABWEAN >60 Normal >=60 [facility] Comment on above: Performed By: #### C MP, LIPID #### [facility] [address] [address] [address] Altagracia Martinez Globulin (S) [Mass/Vol] 3.5 g/dL Normal [facility] Comment on above: Performed By: #### C MP, LIPID #### [facility] [address] [address] [address] Altagracia Martinez Glucose [Mass/Vol] 95 mg/dL Normal 74-106 [facility] Comment on above: Performed By: #### C MP, LIPID #### [facility] [address] [address] [address] Altagracia Martinez Potassium [Moles/Vol] 3.9 mmol/L Normal 3.5-5.1 [facility] Comment on above: Performed By: #### C MP, LIPID #### [facility] [address] [place] [address] Dr. Altagracia Martinez Protein [Mass/Vol] 7.5 g/dL Normal 6.4-8.2 [facility] Comment on above: Performed By: #### C MP, LIPID #### [facility] [address] [address] [address] Altagracia Martinez Sodium [Moles/Vol] 141 mmol/L Normal 136-145 [facility] Comment on above: Performed By: #### C MP, LIPID #### [facility] [address] [place] [address] Dr. Altagracia Martinez Urea nitrogen [Mass/Vol] 14.0 mg/dL Normal 7.0-18.0 [facility] Comment on above: Performed By: #### C MP, LIPID #### [facility] [address] [place] [address] Dr. Altagracia Martinez Urea nitrogen/Creatinine [Mass ratio] 19.7 mg/mg Normal [facility] Comment on above: Performed By: #### C MP, LIPID #### [facility] [address] [address] [address] Altagracia Martinez Encounters Encounter Date Encounter Type Care Provider Facility Start: 03-24-2023 End: 03-25-2023 [facility] MABEL TREVINO [facility] Start: 03-12-2023 Orders Only [facility] Comment on above: [...] malign ant neoplasm of cervix Pap Smear [facility] Start: 01-28-2024 Adult BMI Follow Up Plan Adult BMI Follow Up Plan [facility] Start: 01-28-2024 Adult BMI Screening Adult BMI Screen ing [facility] Start: 01-28-2024 Tobacco Screening Tobacco Screening [facility] Start: 03-24-2023 End: 03-24-2023 Patient encounter procedure 03/24/2023 1:15 PM EST Appointment [facility] - Mammogram DEXA [address] [place] [id number] [facility] - Mammogram DEXA Start: 03-12-2023 End: 03-12-2024 DBT Breast - bilateral screening Mammography screening bilateral with CAD Imaging Routine Encounter for screening mammogram for breast cancer Expected: 03/12/2023, Expires: 03/12/2024 [facility] Work Phone: Comment on above: Expected: 03/12/2023 , Expires: 03/12/2024 Start: 10-25-2022 Influenza vaccination Influenza Vacc ine [facility] Start: 2016 Administration of varicella zoster vaccine Zoster (Shingles) Vaccine (1 of 2) [facility] Start: 1985 DTaP,Tdap and Td Vac cines (1 - Tdap) DTaP,Tdap and Td Vaccines (1 - Tdap) [facility] Start: 1978 Depression Screening Depression Scre ening [facility] Payers Date Payer Category Payer Private Health [place] [facility] [id number] 2022-Present [phone] [address] [place] [address] [id number] 1965 Unknown [id number] 1966 Unknown [id number] 1959 Unknown [id number] Social History Date Type Detail Facility Start: 01-21-2022 Tobacco smoking stat [facility] Never smoked tobacco [facility] Start: 01-21-2022 Tobacco use and exposure Smokeless tobacco non-user [facility] Start: 01-27-2023 Alcohol intake Current drinke r of alcohol (finding) [facility] Start: 01-27-2023 History of Social function [facility] Start: 01-27-2023 Tobacco use panel [facility] Within the past 12 months we worried whether our food would run out before we got money to buy more. Never True [facility] Start: 01-21-2022 Alcohol Comment socially [facility] Start: 1965 Sex Assigned At Not on file P [facility] Note 03-12-2023 Telephone Encounter - Karin [...] Exam. Order placed documented in this encounter [facility] Telephone encounter Note 03-12-2023 Telephone Encounter - Karin Diana - 03/12/2023 2:03 PM EST Note Date & Type Note Facility 03-12-2023 Telephone encount er Note Central Scheduling called asking for Mammogram order. Pt saw Dr Trevino on 01/27/23 for Annual Exam. [facility] Telephone encounter Note 03-12-2023 Telephone Encounter - Astrid Price LPN - 03/12/2023 2:03 PM EST Note Date & Type Note Facility 03-12-2023 Telephone encount er Note [facility] note Note Date & Type [...] and content) DATE CREATED AUTHOR 05/02/2022 [facility] DATE CREATED AUTHOR AUTHOR'S ORGANIZ ATION 03/28/2023 [facility] Care Teams (unrecognized sec tion and content) Vice President Risk Management Relationship Specialty Start Date End Date Ventura Aguilera MD [address] [place] [address] PCP - General Family Medicine 03/19/22 FOR [...] BE BASED ON THE PRIMARY CLINICAL RECORDS. [facility] [employer] [facility]. provides no warranty or guarantee of the accuracy or completeness of information in this document.
--- NOTE | 2023-06-09 13:46 | CA_ITS ---
Patient Name: ALLY GARCIA MR#: [id number] : 1965 Exam Date: 06/09/2023 Ordering Doctor: DR Matthew Arias . ECHOCARDIOGRAM REPORT PROCEDURE: CA ECHO DOPPLER COMPLETE INDICATIONS: Dyspnea COMPARISON: None. DESCRIPTION: COMPLETE ECHOCARDIOGRAM Real-time transthoracic echocardiography with 2D, M-mode, spectral and color flow Doppler performed. QUALITY: Technical quality was adequate. 61 , 132#, BSA 1.58 m2, BP 157/80 LEFT VENTRICLE: Normal chamber size. Normal left ventricular wall thickness. Normal systolic function. LV EF: Normal left ventricular ejection fraction, (>55%). DIASTOLIC: Normal diastolic function. ATRIAL SEPTUM: LEFT ATRIUM: Normal chamber size. RIGHT ATRIUM: Normal chamber size. RIGHT VENTRICLE: Normal chamber size. Normal right ventricular systolic function. TRICUSPID VALVE: Normal mobility and thickness. No stenosis with trivial regurgitation. No evidence of pulmonary hypertension. RVSP 21 mmHg MITRAL VALVE: Normal mobility and thickness. No evidence of mitral valve stenosis. There is no mitral annular calcification. Trivial mitral regurgitation. AORTIC VALVE: Normal trileaflet appearance. No visible sclerosis. Normal leaflet mobility. No evidence of aortic valve stenosis. No aortic regurgitation. AORTIC ROOT: Normal diameter and appearance. PULMONIC VALVE: Not well visualized. No stenosis. No regurgitation. PERICARDIUM: No evidence of pericardial effusion. IVC: Collapses with inspirations. IVC is normal in size. PLEURA: CONCLUSION: 1. Normal ventricular function. LVEF is 60 to 65%. 2. No significant valvular dysfunction. 3. Normal right-sided pressures. 4. No pericardial effusion. Adult Echocardiography Procedure Report Left Ventricle LVEDD (3.7 - 5.6 cm): 3.62 cm LVESD (2.2 - 4.0 cm): 2.56 cm LVIVS thickness (0.6 - 1.2 cm): 0.78 cm LVPW thickness (0.5 - 1.0 cm): 0.69 cm e': 0.10 m/s E - e': 4.93 LVOT Max Gradient: 6.04 mm[Hg] LVOT Area (cm2): 1.23 m/s Peak Velocity (LVOT): 1.23 m/s LVOT Diameter 1.95 cm Left Atrium LA Volume Index (2D A2C): 30.18 ml/m2 Left Atrium Systolic Dimension: 2.79 cm Mitral Valve MV E to A Ratio: 0.62 Mitral Valve A-Wave Peak Velocity: 0.80 m/s Mitral Valve E-Wave Peak Velocity: 0.50 m/s Right Ventricle Aorta AO Root Diam: 3.01 cm Ascending Ao Diam: 2.55 cm Aortic Valve AoV Area (Peak Cristobal): 2.22 cm2, 2.22 cm2 Peak Velocity(Antegrade Flow): 1.65 m/s Peak Gradient(Antegrade Flow): 10.85 mm[Hg] Tricuspid Valve Peak Velocity (Regurgitant Flow): 2.14 m/s Pulmonic Valve Peak Velocity: 1.14 m/s Peak Gradient: 5.23 mm[Hg] Right Atrium Right Atrium Systolic Pressure: 33.18 ml, 33.18 ml Dictated by: Xander Lopez M.D. on 06/09/2023 at 18:41 Approved by: Xander Lopez M.D. on 06/09/2023 at 18:44
[2023-06-09 14:25] LABS: Free T3 1.61 pg/mL (2.18-3.98); Thyroid Stimulating Hormone 1.545 uIU/mL (0.358-3.740)
--- NOTE | 2023-06-09 19:04 | P.HP_ITS ---
HPI H&P: HPI History of Present Illness Chief complaint: chest pain/jaw pain Narrative: Patient present to the emergency room with acute onset of chest pain. Pressure type. Never had before. Has been doing her normal activities and no increase in shortness of breath or chest tightness. In ER was given sublingual nitroglycerin with some improvement in her pain but is somewhat persisting as well. Family history of coronary artery disease. When I saw her up on the medical surgical floor, she was resting comfortably but still some discomfort at times. And again is what pressure type. Slight dyspnea. No radiation, no diaphoresis no nausea. Opioid HPI Opioid Management Most Recent Opioid Data: Last Pain Scale 3 06/09/23 18:29 Last Pain Assessment 06/09/23 18:29 Last ED Pain Assessment 06/09/23 12:27 Last ORT Total Score 0 06/09/23 13:51 Last ORT Risk Category Low Risk 06/09/23 13:51 Review of Systems ROS Status of ROS 10 or more systems reviewed and unremark able except as noted in history and below PFSH PFSH Social History Highest level of school completed/degree received: high school graduate Meds Home Medications and Allergies Home Medications ?Medication ?Instructions ?Recorded ?Confirmed ?Type guselkumab 100 mg/mL subcutaneous 100 mg subcut .Q8W 06/09/23 06/09/23 History auto-injector (Tremfya) Allergies Allergy/AdvReac Type Severity Reaction Status Date / Time No Known Drug Allergies Allergy Verified 06/09/23 10:57 Exam Constitutional Vital Signs, click to edit/add: Last Vital Signs Temp 98.1 F 06/09/23 18:28 Pulse 90 06/09/23 18:28 Resp 16 06/09/23 18:28 BP 153/88 H 06/09/23 18:28 Pulse Ox 97 06/09/23 18:28 O2 Del Method Room Air 06/09/23 18:28 Documenting provider has reviewed patient's vital signs: yes Common normals: apparent distress (Seems mildly uncomfortable due to pain) Chest Common normals: inspection of chest normal; palpation of chest abnormal (Mild reproduction of her pain with pressure over her sternum) Respiratory Common normals: normal respiratory effort, no use of accessory muscles and clear to auscultation bilaterally Cardio Common normals: regular rate, regular rhythm and no murmurs Results Labs Labs: Short CBC 06/09/23 Range/Units 11:02 WBC 9.1 (4.0-11.0) 10^3/uL Hgb 13.8 (12.0-16.0) g/dL Hct 42.5 (36.0-48.0) % Plt Count 359 (150-450) 10^3/uL BMP 06/09/23 11:02 Sodium 138 Potassium 3.7 Chloride 100 Carbon Dioxide 22.0 BUN 17.0 Creatinine 0.83 Glucose 82 Calcium 9.4 Assessment and Plan Assessment and Plan (1) Chest pain: Plan Uncontrolled hypertension with possible hypertensive urgency on admission, chest pain-pressure type, some dyspnea, no diaphoresis, no nausea no radiation of pain. Family history of coronary artery disease. Will cycle enzymes, check echocardiogram repeat enzymes in a.m. Some anterior chest wall tenderness-will check will try 1 dose of Decadron. Cough With improvement with nitroglycerin possible esophageal spasm-will add Protonix IV Admission status: Chest pain, pressure type, agree with recommending observation status overnight. Likely discharge to home in a.m. if improved and echocardiogram normal. Currently predicting medically necessary treatment will not span 2 midnights
[2023-06-09] MEDS: DEXAMETHASONE SOD PHOS 10 MG/ML VIAL IV (20:00)
[2023-06-09] MEDS: PANTOPRAZOLE SODIUM 40 MG VIAL IV (20:00)
[2023-06-09] MEDS: CARVEDILOL 3.125 MG TABLET PO (21:19)
[2023-06-10 01:47] VITALS: PULSE 82
[2023-06-10 03:59] VITALS: PULSE 79
[2023-06-10 04:00] VITALS: BP 114/71; PULSE 84; TEMP 36.4; O2SAT 93
[2023-06-10 04:30] VITALS: O2SAT 94
[2023-06-10 05:09] LABS: Basophils Percent Auto 0.2 % (0.2-2.0); Hematocrit 41.3 % (36.0-48.0); Hemoglobin 13.6 g/dL (12.0-16.0); Immature Granulocytes Abs Auto 0.07 10^3/uL (0.00-0.03); Immature Granulocytes Pct Auto 0.6 % (0.0-0.5); Lymphocytes Absolute Auto 0.8 10^3/uL (1.2-3.8); Mean Corpuscular HGB Conc 32.9 g/dL (29.9-35.2); Mean Corpuscular Hemoglobin 31.1 pg (26.7-34.0); Mean Corpuscular Volume 94.3 fL (81.0-99.0); Mean Platelet Volume 11.5 fL (9.5-13.5); Monocytes Absolute Auto 0.4 10^3/uL (0.3-0.8); Monocytes Percent Auto 3.1 % (1.7-12.0); Neutrophils Absolute Auto 10.1 10^3/uL (1.4-6.5); Neutrophils Percent Auto 89.1 % (43.0-75.0); Platelet Count 349 10^3/uL (150-450); Red Blood Count 4.38 10^6/uL (4.20-5.40); Red Cell Distribution Width 12.2 % (11.0-15.0); White Blood Count 11.3 10^3/uL (4.0-11.0)
[2023-06-10 05:24] LABS: Anion Gap 15.9; BUN Creatinine Ratio 15.4; Calcium 9.6 mg/dL (8.5-10.1); Carbon Dioxide 23.2 mmol/L (21.0-32.0); Chloride 102 mmol/L (98-107); Estimated GFR (African America >60 (>=60); Estimated GFR (Non-African Ame >60 (>=60); Glucose 165 mg/dL (74-106); Potassium 4.1 mmol/L (3.5-5.1); Sodium 137 mmol/L (136-145)
[2023-06-10 05:38] LABS: Troponin I High Sensitivity <4.0 pg/mL (4.0-51.3)
[2023-06-10 06:00] VITALS: PULSE 84
--- NOTE | 2023-06-10 07:23 | P.DS_ITS ---
DS: Providers Provider Date of admission: 06/09/23 13:40 Primary care physician: Matthew Arias MD Consults: 06/09/23 13:43 Consult to Pharmacy Routine Consulting Provider: Reason for consultation: Please [place] me when Med Rec is Updated Has provider been notified: No DS: Diagnosis Discharge Diagnosis (1) Chest pain: Assessment and plan: Uncontrolled hypertension with possible hypertensive urgency on admission, chest pain-pressure type, some dyspnea, no diaphoresis, no nausea no radiation of pain. Family history of coronary artery disease. Will cycle enzymes, check echocardiogram repeat enzymes in a.m. Some anterior chest wall tenderness-will check will try 1 dose of Decadron. Cough With improvement with nitroglycerin possible esophageal spasm-will add Protonix IV Admission status: Chest pain, pressure type, agree with recommending observation status overnight. Likely discharge to home in a.m. if improved and echocardiogram normal. Currently predicting medically necessary treatment will not span 2 midnights DS: Summary Hospital Course Hospital Course: Patient was seen and evaluated in the emergency room with increasing chest pain, pressure type, significant elevation in her blood pressure. She was given 3 sublingual nitros and she did have some improvement but not resolution of her chest pressure. Her blood pressure did however improved. Throughout the rest of the hospitalization her blood pressure is fairly stable. This morning is on the low side which is her normal. She still has some minimal chest pressure after receiving Protonix and 1 dose of steroids. Her pain was somewhat reproducible. With the vagueness of her symptoms she was kept overnight in observation to follow her echocardiogram and her high-sensitivity troponins. Those were all normal. Her BNP is normal. Only other significant finding was she had a low T3 but her TSH is normal. Will track and follow that through the office. She overall feels much improved this morning. So she is ambulating without chest pain she will be discharged home in improving condition. Medications see list. See me in the office in the next 2 to 3 days. Time Spent with Patient Time attestation: Total time spent providing and/or coordinating discharge services: Time spent: less than 30 minutes Exam Constitutional Vital Signs, click to edit/add: Last Vital Signs Temp 97.6 F 06/10/23 04:00 Pulse 84 06/10/23 06:00 Resp 18 06/10/23 04:00 BP 114/71 06/10/23 04:00 Pulse Ox 94 L 06/10/23 04:30 O2 Del Method Room Air 06/10/23 04:30 Documenting provider has reviewed patient's vital signs: yes Common normals: apparent distress (Seems mildly uncomfortable due to pain) Chest Common normals: inspection of chest normal and palpation of chest normal (No further tenderness on exam) Respiratory Common normals: normal respiratory effort, no use of accessory muscles and clear to auscultation bilaterally Cardio Common normals: regular rate, regular rhythm and no murmurs DS: Data Data Completed and Pending Labs on day of discharge: Labs from last 24 hours 06/10/23 06/09/23 06/09/23 04:19 16:53 12:10 WBC 11.3 H RBC 4.38 Hgb 13.6 Hct 41.3 MCV 94.3 MCH 31.1 MCHC 32.9 RDW 12.2 Plt Count 349 MPV 11.5 Neut % (Auto) 89.1 H Lymph % (Auto) 7.0 L [place] % (Auto) 3.1 Eos % (Auto) 0.0 L Baso % (Auto) 0.2 Neut # (Auto) 10.1 H Lymph # (Auto) 0.8 L [place] # (Auto) 0.4 Eos # (Auto) 0.0 Baso # (Auto) 0.0 Abs Immat Gran (auto) 0.07 H Imm/Tot Granulo (auto) 0.6 H Sodium 137 Potassium 4.1 Chloride 102 Carbon Dioxide 23.2 Anion Gap 15.9 BUN 12.0 Creatinine 0.78 Est GFR ( Amer) >60 Est GFR (Non-Af Amer) >60 BUN/Creatinine Ratio 15.4 Glucose 165 H Calcium 9.6 Magnesium 2.0 Troponin I High Sens <4.0 L 6.0 5.3 NT-Pro-B Natriuret Pep 22.0 TSH 1.545 Thyroxine (T4) 7.70 Free T3 1.61 L 06/09/23 11:02 WBC 9.1 RBC 4.46 Hgb 13.8 Hct 42.5 MCV 95.3 MCH 30.9 MCHC 32.5 RDW 12.2 Plt Count 359 MPV 10.8 Neut % (Auto) 57.3 Lymph % (Auto) 31.2 [place] % (Auto) 9.5 Eos % (Auto) 1.2 Baso % (Auto) 0.4 Neut # (Auto) 5.2 Lymph # (Auto) 2.8 [place] # (Auto) 0.9 H Eos # (Auto) 0.1 Baso # (Auto) 0.0 Abs Immat Gran (auto) 0.04 H Imm/Tot Granulo (auto) 0.4 Sodium 138 Potassium 3.7 Chloride 100 Carbon Dioxide 22.0 Anion Gap 19.7 BUN 17.0 Creatinine 0.83 Est GFR ( Amer) >60 Est GFR (Non-Af Amer) >60 BUN/Creatinine Ratio 20.5 Glucose 82 Calcium 9.4 Magnesium Troponin I High Sens 5.1 NT-Pro-B Natriuret Pep TSH Thyroxine (T4) Free T3 Discharge Plan Discharge Disposition: Home, Self-Care Condition: Good Discharge Medications: New aspirin 81 mg tablet,delayed release (DR/EC) 81 mg PO DAILY Qty: 30 11RF prednisone 20 mg tablet 40 mg PO DAILY Qty: 8 0RF pantoprazole [Protonix] 40 mg tablet,delayed release (DR/EC) 40 mg PO DAILY Qty: 7 0RF Continued Tremfya 100 mg/mL auto-injector 100 mg SUBCUT .Q8W Activity: increase activity as tolerated Diet: advance to your usual diet Print Language: Khmer Patient Instructions: Prednisone (By mouth), Aspirin (By mouth), Pantoprazole (By mouth), Chest Pain (ED) Forms: Portal Instructions
[2023-06-10 07:40] VITALS: PULSE 86
--- NOTE | 2023-06-11 13:22 | CM.DCFOLLOWU ---
1st attempt follow up call, no answer 06/11/23
--- NOTE | 2023-06-12 14:13 | CM.DCFOLLOWU ---
Person spoke with:patient How are you feeling? well How is your pain? better Did you understand your discharge instructions? yes Do you have any questions about your discharge instructions? no Were you given any prescriptions at discharge? yes Were you able to get your prescriptions filled? yes Do you understand how to take your medications as ordered? yes Do you have any questions about your follow up appointment and do you plan to keep your follow up appointment? had f/u with PCP today Is there anything else that you would like to discuss? no Questions/Comments/Concerns/Other: N/A
== END 2023-06-10 08:35 | disposition home or self-care (01) ==
LOC: ER 13:14 → MS 13:43
PROVIDERS: Admitting Provider Family Medicine; Emergency Provider Emergency Medicine; PCP Family Medicine; Visit Provider Family Medicine
DX: R07.89 Other chest pain (principal); I10 Essential (primary) hypertension; R06.00 Dyspnea, unspecified; R94.6 Abnormal results of thyroid function studies; Z79.899 Other long term (current) drug therapy; Z82.49 Family history of ischemic heart disease and other diseases of the circulatory system
CPT/HCPCS: 36415; 71045; 80048; 83735; 83880; 84436; 84443; 84481; 84484; 85025; 93005; 93306; 94761; 96374; 96375; 99285; G0378; J1100

== ENCOUNTER 2023-07-01 08:24 | Outpatient (OUT) | payer OTHER, SELFPAY ==
--- NOTE | 2023-07-01 08:15 | NM_ITS ---
Patient Name: ALLY GARCIA MR#: [id number] : 1965 Exam Date: 07/01/2023 Ordering Doctor: DR Mathtew Arias . RADIOLOGY REPORT PROCEDURE: NM TEREZA PERF SPECT REST STR COMPARISON: None. INDICATIONS: CHEST PAIN TECHNIQUE: Exam Description: Stress/Rest one day protocol gated SPECT Rest Imagin.3 mCi Tc-99m Cardiolite IV on 07/01/2023 Stress Imaging 30.0 mCi Tc-99m Cardiolite IV on 07/01/2023 Exercise Protocol: Brett Heart Rate (bpm): Rest: 66 Max: 155 PMHR: 94 Blood Pressure: Rest: 154/86 Max: 166/74 Exercise Time: Minutes: 7 Seconds: 38 Stage Reached: Stage: 3 Mets 10.1 Symptoms: Rest and peak stress ECG findings were normal and the exercise portion of the study was normal per attending physician Dr. Howell . For more details please see separate cardiac stress test report. FINDINGS: QUALITY OF STUDY: Excellent. PERFUSION DEFECT: None. LOCATION: N/A SIZE: N/A. SEVERITY: N/A. TYPE: N/A. WALL MOTION: Normal. LV SIZE: Normal. 53 mL. TID / TCD: None; 0.6 LVEF: Normal. Calculated EF 89%. SUMMARY: Myocardial perfusion imaging study is NORMAL. CONCLUSION: 1. Normal nuclear medicine myocardial perfusion scan. Dictated by: Jhonahtan Gan M.D. on 07/01/2023 at 15:59 Approved by: Jhonathan Gan M.D. on 07/01/2023 at 16:23
--- OUTSIDE RECORDS SUMMARY | 2023-07-01 08:33 | XMS_ITS | CCD ---
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 Name Role Phone TRELL, DOCTOR Admitting Unavailable TRELL, DR XIE Attending Unavailable ALE ., DR WHITEHEAD Primary Care Unavailable TRELL, DR XIE Consulting Unavailable Ventura Arias MD Primary Care Provider MABEL TREVINO Referring Unavailable VENTURA ARIAS Primary Care Unavailable Ventura Arias MD Primary Care Provider JOHN UMAÑA Attending Unavailable VENUTRA ARIAS Primary Care Unavailable Medications Current Medications Medication Drug Class(es) Dates Sig (Normalized) Sig (Original) aspirin 81 mg delayed release oral tablet (1 source) Platelet Aggregation Inhibitor, Nonsteroidal Anti-inflammatory Drug Start: 06-10-2023 take 1 tablet by mouth once daily aspirin 81 mg EC tablet Take 1 tablet (81 mg) by mouth once daily. 06/10/2023 Active 1 ml guselkumab 100 mg/ml auto-injector (3 sources) Interleukin-23 Antagonist Start: 12-18-2021 Tremfya 100 mg/mL injection Inject 1 mL (100 mg) under the skin every 8 (eight) weeks. 12/18/2021 Active omega 3-sha-bqe-fish oil (Fish OiL) 1,000 mg (120 mg-180 mg) capsule (1 source) Start: 06-23-2023 End: 06-22-2024 take 2 capsules by mouth twice daily omega 0-ige-elw-fish oil (Fish OiL) 1,000 mg (120 mg-180 mg) capsule Indications: Hypertriglyceridemia Take 2 capsules (2,000 mg) by mouth 2 times a day. 360 capsule 3 06/23/2023 06/22/2024 Active Problems Active Problems Problem Classification Problem Date Documented Da te Episodic/Chronic Disorders of lipid metabolism (4 sources) Hypertriglyceridem ia; Translations: [Pure hyperglyceridemia] Onset: 06-23-2023 06-23-2023 Chronic Nonspecific chest pain (4 sources) Chest pain; Translations: [Other chest pain] Onset: 06-23-2023 06-23-2023 Episodic Other aftercare (1 source) Other alf (current) drug therapy; Translations: [OTH SKINNER PELTS CURRENT DRUG THERAPY] Onset: 04-29-2022 Episodic Other circulatory disease (2 sources) Elevated blood-pressure reading without diagnosis of hypertension; Translations: [Elevated blood-pressure reading, without diagnosis of hypertension] Onset: 06-23-2023 06-23-2023 Episodic Other circulatory disease (2 sources) Elevated blood-pressure reading, without diagnosis of hypertension; Translations: [Elevated blood-pressure reading, without diagnosis of hypertension] Onset: 06-23-2023 Episodic Other inflammatory condition of skin (4 sources) Psoriasis vulgaris; Translations: [PSORIASIS VULGARIS] Onset: 04-25-2022 Chronic Other inflammatory condition of skin (1 source) Other psoriatic arthropathy; Translations: [OTHER PSORIATIC ARTHROPATHY] Onset: 04-29-2022 Chronic Other inflammatory condition of skin (2 sources) Psoriasis; Translations: [Psoriasis, unspecified] Onset: 06-23-2023 06-23-2023 Chronic Other inflammatory condition of skin (2 sources) Psoriasis, unspecified; Translations: [Psoriasis, unspecified] Onset: 06-23-2023 Chronic Other nutritional; endocrine; and metabolic disorders (2 sources) Overweight in adulthood with body mass index of 25 or more but less than 30; Translations: [Body mass index (BMI) 25.0-25.9, adult] Onset: 06-23-2023 06-23-2023 Episodic Other nutritional; endocrine; and metabolic disorders (2 sources) Body mass index (BMI) 25.0-25.9, adult; Translations: [Body mass index (BMI) 25.0-25.9, adult] Onset: 06-23-2023 Episodic Other screening for suspected conditions (not mental disorders or infectious disease) (2 sources) Patient encounter status; Translations: [Encounter for screening mammogram for malignant neoplasm of breast] Onset: 03-24-2023 03-12-2023 Episodic Residual codes; unclassified (2 sources) Never smoked tobacco; Translations: [Other specified health status] Onset: 06-23-2023 06-23-2023 Episodic Residual codes; unclassified (2 sources) Other specified health status; Translations: [Other specified health status] Onset: 06-23-2023 Episodic Past or Other Problems Problem Classification Problem Date Documented Da te Episodic/Chronic Unclassified (2 sources) Onset: 01-27-2023 01-27-2023 Results Test Name Value Interpretation Reference Range Facil ity ECG 12 Leadon 06-23-2023 [facility] Work Phone: Normal sinus rhythm normal intervals normal EKG [facility] Work Phone: MAMM 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 Performed By: #### Q NTTB #### [facility] [address] [place] [address] Dr. Altagracia Martinez QuantiFERON Incubation Incubation performed. Normal [facility] Comment on above: Performed By: #### Q NTTB #### [facility] [address] [place] [address] Dr. Altagracia Martinez QuantiFERON Mitogen Value >10.00 Normal [facility] Comment on above: Performed By: #### Q NTTB #### [facility] [address] [place] [address] Dr. Altagracia Martinez QuantiFERON Nil Value 0.03 IU/mL Normal [facility] Comment on above: Performed By: #### Q NTTB #### [facility] [address] [place] [address] Dr. Altagracia Martinez QuantiFERON TB1 Ag Value 0.02 IU/mL Normal [facility] Comment on above: Performed By: #### Q NTTB #### [facility] [address] [place] [address] Dr. Altagracia Martinez QuantiFERON TB2 Ag Value 0.02 IU/mL Normal [facility] Comment on above: Performed By: #### Q NTTB #### [facility] [address] [place] [address] Dr. Altagracia Martinez QuantiFERON-TB Gold Plus Negative Normal Negative [facility] Comment on above: Result Comment: No r esponse to M tuberculosis antigens detected. Infection with M tuberculosis is unlikely, but high risk individuals should be considered for additional testing (ATS/IDSA/CDC Clinical Practice Guidelines, 2017). The reference range is an Antigen minus Nil result of <0.35 IU/mL. Chemiluminescence immunoassay methodology Performed By: #### Q NTTB #### [facility] [address] [place] [address] Dr. Altagracia Martinez CBC AUTO DIFFon 04-25-2022 BASO # 0.0 103/ul Normal 0.0-0.1 [facility] Comment on above: Performed By: #### C BC #### [facility] [address] [place] [address] Dr. Altagracia Martinez Basophils/100 WBC (Bld) 0.4 % Normal 0.2-2.0 [facility] Comment on above: Performed By: #### C BC #### [facility] [address] [place] [address] Dr. Altagracia Martinez EO # 0.1 103/ul Normal 0.0-0.7 [facility] Comment on above: Performed By: #### C BC #### [facility] [address] [place] [address] Dr. Altagracia Martinez Eosinophils/100 WBC (Bld) 1.8 % Normal 0.9-7.0 [facility] Comment on above: Performed By: #### C BC #### [facility] [address] [place] [address] Dr. Altagracia Martinez Erythrocyte distribution width (RBC) [Ratio] 12.4 % Normal 11.0-15.0 [facility] Comment on above: Performed By: #### C BC #### [facility] [address] [place] [address] Dr. Altagracia Martinez Hematocrit (Bld) [Volume fraction] 40.5 % Normal 36.0-48.0 [facility] Comment on above: Performed By: #### C BC #### [facility] [address] [place] [address] Dr. Altagracia Martinez Hemoglobin (Bld) [Mass/Vol] 13.1 g/dL Normal 12.0-16.0 [facility] Comment on above: Performed By: #### C BC #### [facility] [address] [place] [address] Dr. Altagracia Martinez IG # 0.02 10e3/ul Normal 0.00-0.03 [facility] Comment on above: Performed By: #### C BC #### [facility] [address] [place] [address] Dr. Altagracia Martinez IG % 0.3 % Normal 0.0-0.5 [facility] Comment on above: Performed By: #### C BC #### [facility] [address] [place] [address] Dr. Altagracia Martinez LYMPH # 2.8 103/ul Normal 1.2-3.8 [facility] Comment on above: Performed By: #### C BC #### [facility] [address] [place] [address] Dr. Altagracia Martinez Lymphocytes/100 WBC (Bld) 39.5 % Normal 20.5-60.0 [facility] Comment on above: Performed By: #### C BC #### [facility] [address] [place] [address] Dr. Altagracia Martinez MANUAL DIFF REQ NO Normal [facility] Comment on above: Performed By: #### C BC #### [facility] [address] [place] [address] Dr. Altagracia Martinez MCH (RBC) [Entitic mass] 30.3 pg Normal 26.7-34.0 [facility] Comment on above: Performed By: #### C BC #### [facility] [address] [place] [address] Dr. Altagracia Martinez MCHC (RBC) [Mass/Vol] 32.3 g/dL Normal 29.9-35.2 [facility] Comment on above: Performed By: #### C BC #### [facility] [address] [place] [address] Dr. Altagracia Martinez MCV (RBC) [Entitic vol] 93.8 fL Normal 81.0-99.0 [facility] Comment on above: Performed By: #### C BC #### [facility] [address] [place] [address] Dr. Altagracia Martinez MONO # 0.7 103/ul Normal 0.3-0.8 [facility] Comment on above: Performed By: #### C BC #### [facility] [address] [place] [address] Dr. Altagracia Martinez Monocytes/100 WBC (Bld) 9.6 % Normal 1.7-12.0 [facility] Comment on above: Performed By: #### C BC #### [facility] [address] [place] [address] Dr. Altagracia Martinez NEUT # 3.5 103/ul Normal 1.4-6.5 [facility] Comment on above: Performed By: #### C BC #### [facility] [address] [place] [address] Dr. Altagracia Martinez Neutrophils/100 WBC (Bld) 48.4 % Normal 43.0-75.0 [facility] Comment on above: Performed By: #### C BC #### [facility] [address] [place] [address] Dr. Altagracia Martinez Platelet mean volume (Bld) [Entitic vol] 10.4 fL Normal 9.5-13.5 [facility] Comment on above: Performed By: #### C BC #### [facility] [address] [place] [address] Dr. Altagracia Martinez PLT 350 103/ul Normal 150-450 [facility] Comment on above: Performed By: #### C BC #### [facility] [address] [place] [address] Dr. Altagracia Martinez RBC 4.32 106/ul Normal 4.20-5.40 [facility] Comment on above: Performed By: #### C BC #### [facility] [address] [place] [address] Dr. Altagracia Martinez WBC 7.2 103/ul Normal 4.0-11.0 [facility] Comment on above: Performed By: #### C BC #### [facility] [address] [place] [address] Dr. Altagracia Martinez LIPID PROFILEon 04-25-2022 CHOL-HDL RATIO NORM SEE BELOW Normal [facility] Comment on above: Result Comment: 3.3 - 4.4 LOW RISK 4.4 - 7.1 AVERAGE RISK 7.1 - 11.0 MODERATE RISK >11.0 HIGH RISK Performed By: #### C MP, LIPID #### [facility] [address] [place] [address] Dr. Altagracia Martinez Cholesterol [Mass/Vol] 266 mg/dL Critically high <=200 [facility] Comment on above: Performed By: #### C MP, LIPID #### [facility] [address] [place] [address] Dr. Altagracia Martinez Cholesterol in HDL [Mass/Vol] 40 mg/dL Normal 40-60 [facility] Comment on above: Performed By: #### C MP, LIPID #### [facility] [address] [address] [address] Altagracia Martinez Cholesterol in LDL [Mass/Vol] 163.4 mg/dL Normal [facility] Comment on above: Performed By: #### C MP, LIPID #### [facility] [address] [address] [address] Altagracia Martinez Cholesterol.total/ Cholesterol in HDL [Mass ratio] 6.7 {ratio} Normal [facility] Comment on above: Performed By: #### C MP, LIPID #### [facility] [address] [place] [address] Dr. Altagracia Martinez HDL NORMAL > or = 60 mg/dl - LOW CARDIOVASCULAR RISK <40 mg/dl - HIGH CARDIOVASCULAR RISK Normal [facility] Comment on above: Performed By: #### C MP, LIPID #### [facility] [address] [place] [address] Dr. Altagracia Martinez LDL CALC NORMAL SEE BELOW Normal [facility] Comment on above: Result Comment: <100 mg/dl OPTIMAL 100 - 129 mg/dl NEAR OR ABOVE OPTIMAL 130 - 159 mg/dl BORDERLINE HIGH 160 - 189 mg/dl HIGH >190 mg/dl VERY HIGH Performed By: #### C MP, LIPID #### [facility] [address] [place] [address] Dr. Altagracia Martinez Triglyceride [Mass/Vol] 313 mg/dL Critically high <=150 [facility] Comment on above: Performed By: #### C MP, LIPID #### [facility] [address] [place] [address] Dr. Altagracia Martinez VLDL CALC 62.6 mg/dL Normal [facility] Comment on above: Performed By: #### C MP, LIPID #### [facility] [address] [place] [address] Dr. Altagracia Martinez PROF 14(COMP METB)on 023 Albumin [Mass/Vol] 4.0 g/dL Normal 3.4-5.0 [facility] Comment on above: Performed By: #### C MP, LIPID #### [facility] [address] [place] [address] Dr. Altagracia Martinez Albumin/Globulin [Mass ratio] 1.1 {ratio} Normal [facility] Comment on above: Performed By: #### C MP, LIPID #### [facility] [address] [place] [address] Dr. Altagracia Martinez ALP [Catalytic activity/Vol] 56 U/L Normal 46-116 [facility] Comment on above: Performed By: #### C MP, LIPID #### [facility] [address] [place] [address] Dr. Altagracia Martinez ALT [Catalytic activity/Vol] 24 U/L Normal 14-59 [facility] Comment on above: Performed By: #### C MP, LIPID #### [facility] [address] [place] [address] Dr. Altagracia Martinez Anion gap [Moles/Vol] 11.5 mmol/L Normal [facility] Comment on above: Performed By: #### C MP, LIPID #### [facility] [address] [place] [address] Dr. Altagracia Martinez AST [Catalytic activity/Vol] 21 U/L Normal 15-37 [facility] Comment on above: Performed By: #### C MP, LIPID #### [facility] [address] [place] [address] Dr. Altagracia Martinez Bilirubin [Mass/Vol] 0.4 mg/dL Normal 0.2-1.0 [facility] Comment on above: Performed By: #### C MP, LIPID #### [facility] [address] [place] [address] Dr. Altagracia Martinez Calcium [Mass/Vol] 9.3 mg/dL Normal 8.5-10.1 [facility] Comment on above: Performed By: #### C MP, LIPID #### [facility] [address] [place] [address] Dr. Altagracia Martinez Chloride [Moles/Vol] 105 mmol/L Normal 98-107 [facility] Comment on above: Performed By: #### C MP, LIPID #### [facility] [address] [place] [address] Dr. Altagracia Martinez CO2 [Moles/Vol] 28.4 mmol/L Normal 21.0-32.0 [facility] Comment on above: Performed By: #### C MP, LIPID #### [facility] [address] [place] [address] Dr. Altagracia Martinez Creatinine [Mass/Vol] 0.71 mg/dL Normal 0.55-1.02 [facility] Comment on above: Performed By: #### C MP, LIPID #### [facility] [address] [address] [address] Altagracia Martinez EGFR-AF JORDANIAN >60 Normal >=60 [facility] Comment on above: Performed By: #### C MP, LIPID #### [facility] [address] [place] [address] Dr. Altagracia Martinez EGFR-NON AF JORDANIAN >60 Normal >=60 [facility] Comment on above: Performed By: #### C MP, LIPID #### [facility] [address] [place] [address] Dr. Altagracia Martinez Globulin (S) [Mass/Vol] 3.5 g/dL Normal [facility] Comment on above: Performed By: #### C MP, LIPID #### [facility] [address] [place] [address] Dr. Altagracia Martinez Glucose [Mass/Vol] 95 mg/dL Normal 74-106 [facility] Comment on above: Performed By: #### C MP, LIPID #### [facility] [address] [place] [address] Dr. Altagracia Martinez Potassium [Moles/Vol] 3.9 mmol/L Normal 3.5-5.1 [facility] Comment on above: Performed By: #### C MP, LIPID #### [facility] [address] [address] [address] Altagracia Martinez Protein [Mass/Vol] 7.5 g/dL Normal 6.4-8.2 [facility] Comment on above: Performed By: #### C MP, LIPID #### [facility] [address] [place] [address] Dr. Altagracia Martinez Sodium [Moles/Vol] 141 mmol/L Normal 136-145 [facility] Comment on above: Performed By: #### C MP, LIPID #### [facility] [address] [address] [address] Altagracia Martinez Urea nitrogen [Mass/Vol] 14.0 mg/dL Normal 7.0-18.0 [facility] Comment on above: Performed By: #### C MP, LIPID #### [facility] [address] [address] [address] Altagracia Martinez Urea nitrogen/Creatinin e [Mass ratio] 19.7 mg/mg Normal [facility] Comment on above: Performed By: #### C MP, LIPID #### [facility] [address] [address] [address] Altagracia Martinez Vital Signs Date Time Vital Sign Value Performing Clinician Faci lity 06-23-2023 16:41-0400 Diastolic blood pressure 72 mm[Hg] John Umaña MD Work Phone: [facility] 06-23-2023 16:41-0400 Systolic blood pressure 160 mm[Hg] John Umaña MD Work Phone: [facility] 06-23-2023 15:33-0400 Heart rate 68 /min John Umaña MD Work Phone: [facility] 06-23-2023 15:29-0400 Body height 154.9 cm John Umaña MD Work Phone: [facility] 06-23-2023 15:29-0400 Body mass index (BMI) [Ratio] 25.13 kg/m2 John Umaña MD Work Phone: [facility] 06-23-2023 15:29-040 Body weight 60.33 kg John Umaña MD Work Phone: [facility] Encounters Encounter Date Encounter Type Care Provider Facility Start: 06-23-2023 End: 06-23-2023 ambulatory [facility] Start: 06-23-2023 End: 06-23-2023 Office consultation new/estab patient 60 min John Umaña MD Work Phone: [facility] Comment on above: Other chest pain; BMI 25.0-25.9,adult; Never smoked tobacco; Hypertriglyceridemia; Psoriasis; Elevated BP without diagnosis of hypertension Start: 03-24-2023 End: 03-25-2023 ambulatory MABEL WASHINGTONVACH [facility] Start: 03-12-2023 Orders Only [facility] Comment on above: Encounter for screen ing mammogram for breast cancer (Primary Dx) Start: 04-25-2022 End: 04-26-[address] [facility] [place]: Procedures Date Procedure Procedure Detail Performing Clinician Start: 06-23-2023 ECG 12-LEAD JOHN MONTERO Start: 06-23-2023 Ecg routine ecg w/le ast 12 lds w/i&r John Umaña MD Work Phone: Start: 03-24-2023 Mammography John montero MD Work Phone: Start: 01-27-2023 Microscopic observat ion [Identifier] in Cervix by Cyto stain Astrid Price LPN Plan of Treatment Date Care Activity Detail Author Start: 01-27-2026 Screening for malign ant neoplasm of cervix Pap Smear [facility] Start: 03-24-2024 Screening for malign ant neoplasm of breast Mammogram [facility] Start: 01-28-2024 Adult BMI Follow Up Plan Adult BMI Follow Up Plan [facility] Start: 01-28-2024 Adult BMI Screening Adult BMI Screen ing [facility] Start: 01-28-2024 Tobacco Screening Tobacco Screening [facility] Start: 10-26-2023 Influenza vaccination Influenz a Vaccine (Season Ended) [facility] Start: 10-16-2023 End: 10-16-2023 Patient encounter procedure 10/16/2023 9:00 AM EDT Office Visit [facility] [address] [facility] [address] [place] [address] John Umaña MD [address] [place] [address] [address] [place], [place] [id number] [facility] Start: 03-24-2023 End: 03-24-2023 Patient encounter procedure 03/24/2023 1:15 PM EST Appointment [facility] - Mammogram DEXA [address] [place] [address] [facility] - Mammogram DEXA Start: 03-12-2023 End: 03-12-2024 DBT Breast - bilateral screening Mammography screening bilateral with CAD Imaging Routine Encounter for screening mammogram for breast cancer Expected: 03/12/2023, Expires: 03/12/2024 [facility] Work Phone: Comment on above: Expected: 03/12/2023 , Expires: 03/12/2024 Start: 10-25-2022 COVID-19 Vaccine ( season) COVID-19 Vaccine ( season) [facility] Start: 10-25-2022 Influenza vaccination Influenza Vacc ine [facility] Start: 2016 Administration of varicella zoster vaccine Zoster (Shingles) Vaccine (1 of 2) [facility] Start: 2016 Zoster Vaccines (1 of 2) Zoste r Vaccines (1 of 2) [facility] Start: 1988 DTaP/Tdap/Td Vaccine s (1 - Tdap) DTaP/Tdap/Td Vaccines (1 - Tdap) [facility] Start: 09-22-1987 Screening for malign ant neoplasm of cervix [facility] Start: 1985 DTaP,Tdap and Td Vac cines (1 - Tdap) DTaP,Tdap and Td Vaccines (1 - Tdap) [facility] Start: 1984 Diabetes mellitus screening Diabetes Screening [facility] Start: 1984 Hepatitis C screening Hepatitis C Sc reening [facility] Start: 1978 Depression Screening Depression Scre ening [facility] Start: 09-22-1967 MMR Vaccines (1 of 1 - Standard series) MMR Vaccines (1 of 1 - Standard series) [facility] Start: 1966 HIV screening HIV Screening [facility] Start: 1966 Lipid panel Lipid Panel [facility] Start: 1966 Screening for malign ant neoplasm of colon [facility] Start: 1966 Yearly Adult Physical Yearly Adult P hysical [facility] Payers Date Payer Category Payer Private Health Insurance [id number] 1966 Unknown [id number] 1966 Unknown [id number] 1966 Unknown [id number] 1959 Unknown [id number] Social History Date Type Detail Facility Start: 01-21-2022 End: 06-23-2023 Tobacco smoking status NHIS Never smoked tobacco [facility] Start: 01-21-2022 End: 06-23-2023 Tobacco use and exposure Smokeless tobacco non-user [facility] Start: 01-27-2023 Alcohol intake Current drinke r of alcohol (finding) [facility] Start: 01-27-2023 End: 06-23-2023 History of Social function [facility] Start: 01-27-2023 End: 06-23-2023 Tobacco use panel [facility] Within the past 12 months we worried whether our food would run out before we got money to buy more. Never True [facility] Start: 01-21-2022 Alcohol Comment socially [facility] Start: 1965 Sex Assigned At Not on file [facility] Start: 06-23-2023 Alcoholic beverage intake Ex-drinker (finding) [facility] Work Phone: Start: 06-13-2023 End: 06-23-2023 Exposure to SARS-CoV-2 (event) Not sure [facility] History of Present illness Narrative 06-23-2023 John Umaña MD - 06/23/2023 3:15 PM EDT Note Date & Type Note Facility 06-23-2023 History of Present illness Narrative Referred by Dr.Michael Arias for New Patient Visit (Chest pain) History Of Present Illness: Francisca Garcia is a 57 y.o. female presenting with history of chest pain. Accompanied by to the office. Will patient and have been modifying their lifestyle, becoming more heart healthy, exercising more, they both lost weight. 2 weeks ago patient noted anterior chest discomfort which she describes as a pressure sensation, lasting several minutes, says that she looked quite uncomfortable sitting in a chair, for quite some time, she reports that the discomfort then went into her jaw, finally they decided to seek emergent medical attention, cardiac biomarkers were negative EKG was negative, she was observed overnight, on the schedule for an outpatient stress test which is to be done on 06/30/2024, and the diagnosis they gave me is she had pleurisy. Chest pain was not sharp and it was not worse with deep inspiration, reports that the chest pain will get better when she laid down and it was worse when she sat up or leaning forward. No unaccustomed physical activity history. Has history of psoriasis and hypertriglyceridemia. No family history of premature coronary artery disease Reviewed notes by primary MD Dr. Mazariegos dated 06/17/2024. Reviewed recent laboratory data, hemoglobin 13.8 hematocrit 41 platelets 349 glucose 165 sodium 137 potassium 4.1 GFR greater than 60, these labs were from June 10, 2023. NT proBNP level was 22 troponin was negative . Free T31.61 Which is below normal, reference range being 2.18-3.98, magnesium 2.0. T4 was normal at 7.7 TSH 1.54 LDL cholesterol 97, triglycerides 478 total cholesterol 268 HDL 45 total cholesterol to HDL ratio 6.0 Echocardiogram was reported to show normal LVEF of 60 to 65% grossly normal valves normal right-sided pressures and no pericardial effusion.. No history of fever chills cough, no unaccustomed weight loss or weight gain, no recent travel or trauma, no prior history of DVT or pulmonary embolism, 12 point review of systems is otherwise negative or noncontributory. Past Medical History: She has no past medical history on file. Past Surgical History: She has a past surgical history that includes section, classic. Social History: She reports that she has never smoked. She has never used smokeless tobacco. She reports that she does not currently use alcohol. She reports that she does not use drugs. Family History: Family History Problem Relation Name Age of Onset Breast cancer Mother Diabetes Mother Dementia Father Kidney failure Father Migraines Sister Hypertension Sister Allergies: Patient has no known allergies. Outpatient Medications: Current Outpatient Medications Medication Instructions aspirin 81 mg, oral, Daily omega 4-boh-sif-fish oil (Fish OiL) 1,000 mg (120 mg-180 mg) capsule 2,000 mg, oral, 2 times daily Tremfya 100 mg, subcutaneous, Every 8 weeks Last Recorded Vitals: Vitals: 06/23/23 1529 06/23/23 1533 06/23/23 1640 06/23/23 1641 BP: (!) 190/100 160/90 154/72 160/72 BP Location: Left arm Right arm Right arm Left arm Patient Position: Sitting Sitting Sitting Sitting Pulse: 68 68 Weight: 60.3 kg (133 lb) Height: 1.549 m (5' 1 ) Physical Exam: GENERAL APPEARANCE: Well developed, well nourished, in no acute distress. CHEST: Symmetric and non-tender. INTEGUMENT: Skin warm and dry, without gross excoriationis or lesions. HEENT: No gross abnormalities, no jugular venous distention no carotid bruit or scleral icterus NECK: Supple, no JVD, no bruit. Thyroid not palpable. Carotid upstrokes normal. NEURO/PSHCY: Alert and oriented x3; appropriate behavior and responses and responses, with normal balance and coordination LUNGS: Clear to auscultation bilaterally; normal respiratory effort. HEART: Rate and rhythm regular with no evident murmur; no gallop appreciated. There are no rubs, clicks or heaves. ABDOMEN: Soft, nontender, no masses or bruits. MUSCULOSKELETAL: No obvious deformity identified EXTREMITIES: Warm There is no edema noted. PERIPHERAL VASCULAR: Pulses present and equally palpable; 2+ throughout. Labs reviewed today : CBC, basic metabolic profile, thyroid function panel, lipid profile and comprehensive profile. Assessment/Plan Diagnoses and all orders for this visit: Other chest pain - Follow Up In Cardiology; Future - ECG 12 Lead BMI 25.0-25.9,adult Never smoked tobacco Hypertriglyceridemia - omega 0-atr-bxj-fish oil (Fish OiL) 1,000 mg (120 mg-180 mg) capsule; Take 2 capsules (2,000 mg) by mouth 2 times a day. Psoriasis Elevated BP without diagnosis of hypertension 1. Other chest pain Follow Up In Cardiology ECG 12 Lead 2. BMI 25.0-25.9,adult 3. Never smoked tobacco 4. Hypertriglyceridemia omega 2-cnf-zmh-fish oil (Fish OiL) 1,000 mg (120 mg-180 mg) capsule 5. Psoriasis 6. Elevated BP without diagnosis of hypertension Clinical decision makin. Postmenopausal female with chest discomfort that has several features of angina pectoris, without objective evidence of ischemia. 2. Her symptoms have not recurred 3. Her echo is reported to be normal, done on 06/09/2023. 4. She has elevated triglycerides 5. She is on immune modulating agent for psoriasis. 6. Her blood pressure is elevated, rechecked at 160s over 70s, no significant difference between upper extremities, she reports that home blood pressures are in the 120s systolic, and that she has whitecoat hypertension. I recommendations are that she continue to monitor her blood pressures outside the office environment, she should start fish oil 2 g p.o. twice daily as tolerated, she should undergo her treadmill stress test as already scheduled, and I will see her in follow-up after testing. She understands the dynamic nature of coronary artery disease and the importance of seeking prompt medical attention if symptoms recur or change. Clinically there is no suspicion for pericarditis or pleurisy. We also talked about coronary calcium scoring, I do not know how much that test will add to our medical management. Thank you for allowing me to participate in Francisca's care, please do not hesitate to call if further questions arise, Sincerely, John Umaña MD [facility] Provider Attestation - Scribe documentation All medical record entries made by the Scribe were at my direction and personally dictated by me. I have reviewed the chart and agree that the record accurately reflects my personal performance of the history, physical exam, discussion and plan. documented in this encounter [facility] Work Phone: Instructions 06-23-2023 Patient Instructions Note Date & Type Note Facility 06-23-2023 Instructions Alberta Rodríguez CMA - 06/23/2023 3:15 PM EDT Please bring all medicines, vitamins, and herbal supplements with you when you come to the office. Prescriptions will not be filled unless you are compliant with your follow up appointments or have a follow up appointment scheduled as per instruction of your physician. Refills should be requested at the time of your visit. EKG done in office today documented in this encounter [facility] Work Phone: Note 03-12-2023 Telephone Encounter - Karin Diana [...] Exam. Order placed documented in this encounter [facility] Telephone encounter Note 03-12-2023 Telephone Encounter - Karin Diana - 03/12/2023 2:03 PM EST Note Date & Type Note Facility 03-12-2023 Telephone encount er Note Central Scheduling called asking for Mammogram order. Pt saw Dr Trevino on 01/27/23 for [facility] Tele[facility] encounter Note 03-12-2023 Telephone Encounter - Astrid Price LPN - 03/12/2023 2:03 PM EST Note Date & Type Note Facility 03-12-2023 Telephone encount er Note Order placed [facility] Evaluation note Note Date & Type Note Facility Evaluation note Diagnosis Encounter for screening mammogram for breast cancer- Primary documented in this encounter [facility] Evaluation note Note Date & Type Note Facility Evaluation note Diagnosis Other chest pain BMI 25.0-25.9,adult Never smoked tobacco Hypertriglyceridemia Pure hyperglyceridemia Psoriasis Other psoriasis Elevated BP without diagnosis of hypertension documented in this encounter [facility] Work Phone: Instructions Note Date & Type Note Facility Instructions Not on filedocumented in this en counter [facility] Instructions Note Date & Type Note Facility Instructions Not on filedocumented in this en counter [facility] Summary Purpose Family History No Family History Records FoundNo Family History Records FoundNo Family History Records Found Advance Directives No Advanced Directives Records FoundNo Advanced Directives Records FoundNo Advanced Directives Records Found Reason for Referral Specialty Diagnoses / Procedures Referred By Contac t Referred To Contact Diagnoses Other chest pain Procedures ECG 12 Lead John Umaña MD [address] [address] Referral ID Status Reason Start Date Expiration Date V isits Requested Visits Authorized [id number] Authorized 06/23/2023 06/22/2024 1 1 Specialty Diagnoses / Procedures Referred By Contac t Referred To Contact Cardiology Diagnoses Other chest pain Procedures Follow Up In Cardiology John Umaña MD [address] [facility] [address] [place] [address] John Umaña MD [address] [facility] [address] [place] [address] Referral ID Status Reason Start Date Expiration Date V isits Requested Visits Authorized [id number] Authorized 06/23/2023 06/22/2024 1 1 Additional Source Comments INFORMATION SOURCE (unrecogn ized section and content) DATE CREATED AUTHOR 05/02/2022 [facility] DATE CREATED AUTHOR AUTHOR'S ORGANIZ ATION 03/28/2023 [facility] DATE CREATED AUTHOR AUTHOR'S ORGANIZ ATION 06/24/2023 [facility] [employer] Teams (unrecognized sec tion and content) [employer] Relationship Specialty Start Date End Date Ventura Arias MD [address] [place] [address] PCP - General Family Medicine 03/19/22 [employer] Relationship Specialty Start Date End Date Ventura Arias MD [address] [place] [address] PCP - General Family Medicine 06/20/23 Reason for Visit (unrecogniz ed section and content) Reason Comments New Patient Visit Chest pain Specialty Diagnoses / Procedures Referred By Alexandrea t Referred To Contact Diagnoses Other chest pain Procedures ECG 12 Lead John Umaña MD [address] [facility] [address] [place] [address] Referral ID Status Reason Start Date Expiration Date V isits Requested Visits Authorized [id number] Authorized 06/23/2023 06/22/2024 1 1 FOR RECORDS PERTAINING TO PATIENTS WHO ARE [...] BE BASED ON THE PRIMARY CLINICAL RECORDS. [facility] [employer] provides no warranty or guarantee of the accuracy or completeness of information in this document.
--- NOTE | 2023-07-01 13:00 | P.STRESS_ITS ---
Stress Test Stress Test Allergies Allergy/AdvReac Type Severity Reaction Status Date / Time No Known Drug Allergies Allergy Verified 06/09/23 10:57 Requesting physician: Matthew Arias Procedure: Exercise Cardiolite stress test General Information: Reason for Stress Test: Chest pain Cardiac History and Risk Factors: None listed Resting 12 - Lead Electrocardiogram: Rate & rhythm: Normal sinus at a rate of 84. [place]: Normal T-waves: Inverted in aVL ST-segments: No abnormalities Prolonged QTc @ 489msec Stress Test: Protocol: Brett protocol was followed, with injection of Cardiolite once target heart rate was achieved. Exercise capacity: Good exercise capacity. Total exercise time of 7minutes 39 seconds reached Brett stage 3 at 3.4MPH, 14% grade, & 10.1 METs. Blood pressure: Initial: 154/86, Maximum: 166/74 Rate & rhythm: Patient remained in sinus rhythm during the exercise and recovery portions of the study.? The maximum heart rate was 155, which was 94% of the maximum predicted heart rate 164. ST-segments & T-waves: No significant changes when compared to the baseline EKG. Patient response/symptoms: No reproducible symptoms to chief complaint. Interpretation: Normal exercise stress test without electrocardiographical evidence of ischemia. Asymptomatic of chief complaint. Cardiolite imaging interpretation will be reported separately. Clinical correlation required.?
== END 2023-07-01 08:25 | disposition home or self-care (01) ==
LOC: NM 08:24
PROVIDERS: PCP Family Medicine; Visit Provider Family Medicine
DX: R07.9 Chest pain, unspecified (principal)
CPT/HCPCS: 78452; 93017; A9500

== ENCOUNTER 2023-10-08 07:28 | Outpatient (OUT) | payer OTHER, SELFPAY ==
--- OUTSIDE RECORDS SUMMARY | 2023-10-08 07:30 | XMS_ITS | CCD ---
Author Organization 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 12/18/2021 Active omega 3-ptk-rua-fish oil (Fish OiL) 1,000 mg (120 mg-180 mg) capsule (1 source) Start: 06-23-2023 End: 06-22-2024 take 2 capsules by mouth twice daily omega 8-zuo-pxw-fish oil (Fish OiL) 1,000 mg (120 mg-180 mg) capsule Indications: Hypertriglyceridemia Take 2 capsules (2,000 mg) by mouth 2 times a day. 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; Translations: [OTH [facility] CURRENT DRUG THERAPY] Onset: 04-29-2022 Episodic Other circulatory disease (2 sources) Elevated blood-pressure reading without diagnosis of hypertension; Translations: [Elevated blood-pressure reading, without diagnosis of hypertension] Onset: 06-23-2023 06-23-2023 Episodic Other inflammatory condition of skin [...] 25.0-25.9, adult] Onset: 06-23-2023 06-23-2023 Episodic Other screening for suspected conditions (not mental disorders or infectious disease) (2 sources) Patient encounter status; Translations: [Encounter for screening mammogram for malignant neoplasm of breast] Onset: 03-24-2023 03-12-2023 Episodic Residual codes; unclassified (2 sources) Never smoked tobacco; Translations: [Other specified health status] Onset: 06-23-2023 06-23-2023 Episodic Past or Other Problems Problem Classification Problem Date Documented Da te Episodic/Chronic Nonspecific chest pain (4 sources) Chest pain; Translations: [Other chest pain] Onset: 06-23-2023 06-23-2023 Episodic Other circulatory disease (2 sources) Elevated blood-pressure reading, without diagnosis of hypertension; Translations: [Elevated blood-pressure reading, without diagnosis of hypertension] Onset: 06-23-2023 Episodic Other nutritional; endocrine; and metabolic disorders (2 sources) Body mass index (BMI) 25.0-25.9, adult; Translations: [Body mass index (BMI) 25.0-25.9, adult] Onset: 06-23-2023 Episodic Residual codes; unclassified (2 sources) Other specified health status; Translations: [Other specified health status] Onset: 06-23-2023 Episodic Unclassified (2 sources) Onset: 01-27-2023 01-27-2023 Results Test Name Value Interpretation Reference Range Facil ity ECG 12 Leadon 06-23-2023 [facility] Work Phone: Normal sinus rhythm normal intervals normal EKG [facility] Work Phone: MAMM SCREENING 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 Performed By: #### Q NTTB #### [facility] [address] [place] [address] Dr. Altagracia Martinez QuantiFERON Incubation Incubation performed. Normal [facility] Comment on above: Performed By: #### Q NTTB #### [facility] [address] [place] [address] Dr. Altagracia Martinez QuantiFERON Mitogen Value >10.00 Normal [facility] Comment on above: Performed By: #### Q NTTB #### [facility] [address] [place] [address] Dr. Altagracia Martinez QuantiFERON Nil Value 0.03 IU/mL Normal [facility] Comment on above: Performed By: #### Q NTTB #### [facility] [address] [place] [address] Dr. Altagracia Martinez QuantiFERON TB1 Ag Value 0.02 IU/mL Normal [facility] Comment on above: Performed By: #### Q NTTB #### [facility] [address] [place] [address] Dr. Altagracia Martinez QuantiFERON TB2 Ag Value 0.02 IU/mL Normal [facility] Comment on above: Performed By: #### Q NTTB #### [facility] [address] [place] [address] Dr. Altagracia Martinez QuantiFERON-TB Gold Plus Negative Normal Negative [facility] Comment on above: Result Comment: No r esponse to M tuberculosis antigens detected. Infection with M tuberculosis is unlikely, but high risk individuals should be considered for additional testing (ATS/IDSA/CDC Clinical Practice Guidelines, 2017). The reference range is an Antigen minus Nil result of <0.35 IU/mL. Chemiluminescence immunoassay methodology Performed By: #### Q NTTB #### [facility] [address] [place] [address] Dr. Altagracia Martinez CBC AUTO DIFFon 04-25-2022 BASO # 0.0 103/ul Normal 0.0-0.1 [facility] Comment on above: Performed By: #### C BC #### [facility] [address] [place] [address] Dr. Altagracia Martinez Basophils/100 WBC (Bld) 0.4 % Normal 0.2-2.0 [facility] Comment on above: Performed By: #### C BC #### [facility] [address] [place] [address] Dr. Altagracia Martinez EO # 0.1 103/ul Normal 0.0-0.7 [facility] Comment on above: Performed By: #### C BC #### [facility] [address] [place] [address] Dr. Altagracia Martinez Eosinophils/100 WBC (Bld) 1.8 % Normal 0.9-7.0 [facility] Comment on above: Performed By: #### C BC #### [facility] [address] [place] [address] Dr. Altagracia Martinez Erythrocyte distribution width (RBC) [Ratio] 12.4 % Normal 11.0-15.0 [facility] Comment on above: Performed By: #### C BC #### [facility] [address] [place] [address] Dr. Altagracia Martinez Hematocrit (Bld) [Volume fraction] 40.5 % Normal 36.0-48.0 [facility] Comment on above: Performed By: #### C BC #### [facility] [address] [place] [address] Dr. Altagracia Martinez Hemoglobin (Bld) [Mass/Vol] 13.1 g/dL Normal 12.0-16.0 [facility] Comment on above: Performed By: #### C BC #### [facility] [address] [place] [address] Dr. Altagracia Martinez IG # 0.02 10e3/ul Normal 0.00-0.03 [facility] Comment on above: Performed By: #### C BC #### [facility] [address] [place] [address] Dr. Altagracia Martinez IG % 0.3 % Normal 0.0-0.5 [facility] Comment on above: Performed By: #### C BC #### [facility] [address] [place] [address] Dr. Altagracia Martinez LYMPH # 2.8 103/ul Normal 1.2-3.8 [facility] Comment on above: Performed By: #### C BC #### [facility] [address] [place] [address] Dr. Altagracia Martinez Lymphocytes/100 WBC (Bld) 39.5 % Normal 20.5-60.0 [facility] Comment on above: Performed By: #### C BC #### [facility] [address] [place] [address] Dr. Altagracia Martinez MANUAL DIFF REQ NO Normal [facility] Comment on above: Performed By: #### C BC #### [facility] [address] [place] [address] Dr. Altagracia Martinez MCH (RBC) [Entitic mass] 30.3 pg Normal 26.7-34.0 [facility] Comment on above: Performed By: #### C BC #### [facility] [address] [place] [address] Dr. Altagracia Martinez MCHC (RBC) [Mass/Vol] 32.3 g/dL Normal 29.9-35.2 [facility] Comment on above: Performed By: #### C BC #### [facility] [address] [place] [address] Dr. Altagracia Martinez MCV (RBC) [Entitic vol] 93.8 fL Normal 81.0-99.0 [facility] Comment on above: Performed By: #### C BC #### [facility] [address] [place] [address] Dr. Altagracia Martinez MONO # 0.7 103/ul Normal 0.3-0.8 [facility] Comment on above: Performed By: #### C BC #### [facility] [address] [place] [address] Dr. Altagracia Martinez Monocytes/100 WBC (Bld) 9.6 % Normal 1.7-12.0 [facility] Comment on above: Performed By: #### C BC #### [facility] [address] [place] [address] Dr. Altagracia Martinez NEUT # 3.5 103/ul Normal 1.4-6.5 [facility] Comment on above: Performed By: #### C BC #### [facility] [address] [place] [address] Dr. Altagracia Martinez Neutrophils/100 WBC (Bld) 48.4 % Normal 43.0-75.0 [facility] Comment on above: Performed By: #### C BC #### [facility] [address] [place] [address] Dr. Altagrcaia Martinez Platelet mean volume (Bld) [Entitic vol] 10.4 fL Normal 9.5-13.5 [facility] Comment on above: Performed By: #### C BC #### [facility] [address] [place] [address] Dr. Altagracia Martinez PLT 350 103/ul Normal 150-450 [facility] Comment on above: Performed By: #### C BC #### [facility] [address] [place] [address] Dr. Altagracia Martinez RBC 4.32 106/ul Normal 4.20-5.40 [facility] Comment on above: Performed By: #### C BC #### [facility] [address] [place] [address] Dr. Altagracia Martinez WBC 7.2 103/ul Normal 4.0-11.0 [facility] Comment on above: Performed By: #### C BC #### [facility] [address] [place] [address] Dr. Altagracia Martinez LIPID PROFILEon 04-25-2022 CHOL-HDL RATIO NORM SEE BELOW Normal [facility] Comment on above: Result Comment: 3.3 - 4.4 LOW RISK 4.4 - 7.1 AVERAGE RISK 7.1 - 11.0 MODERATE RISK >11.0 HIGH RISK Performed By: #### C MP, LIPID #### [facility] [address] [place] [address] Dr. Altagracia Martinez Cholesterol [Mass/Vol] 266 mg/dL Critically high <=200 [facility] Comment on above: Performed By: #### C MP, LIPID #### [facility] [address] [place] [address] Dr. Altagracia Martinez Cholesterol in HDL [Mass/Vol] 40 mg/dL Normal 40-60 [facility] Comment on above: Performed By: #### C MP, LIPID #### [facility] [address] [address] [address] Altagracia Martinez Cholesterol in LDL [Mass/Vol] 163.4 mg/dL Normal [facility] Comment on above: Performed By: #### C MP, LIPID #### [facility] [address] [address] [address] Altagracia Martinez Cholesterol.total/ Cholesterol in HDL [Mass ratio] 6.7 {ratio} Normal [facility] Comment on above: Performed By: #### C MP, LIPID #### [facility] [address] [address] [address] Altagracia Martinez HDL NORMAL > or = 60 mg/dl - LOW CARDIOVASCULAR RISK <40 mg/dl - HIGH CARDIOVASCULAR RISK Normal [facility] Comment on above: Performed By: #### C MP, LIPID #### [facility] [address] [place] [address] Dr. Altagracia Martinez LDL CALC NORMAL SEE BELOW Normal [facility] Comment on above: Result Comment: <100 mg/dl OPTIMAL 100 - 129 mg/dl NEAR OR ABOVE OPTIMAL 130 - 159 mg/dl BORDERLINE HIGH 160 - 189 mg/dl HIGH >190 mg/dl VERY HIGH Performed By: #### C MP, LIPID #### [facility] [address] [place] [address] Dr. Altagracia Martinez Triglyceride [Mass/Vol] 313 mg/dL Critically high <=150 [facility] Comment on above: Performed By: #### C MP, LIPID #### [facility] [address] [place] [address] Dr. Altagracia Martinez VLDL CALC 62.6 mg/dL Normal [facility] Comment on above: Performed By: #### C MP, LIPID #### [facility] [address] [address] [address] Altagracia Martinez PROF 14(COMP METB)on 023 Albumin [Mass/Vol] 4.0 g/dL Normal 3.4-5.0 [facility] Comment on above: Performed By: #### C MP, LIPID #### [facility] [address] [place] [address] Dr. Altagracia Martinez Albumin/Globulin [Mass ratio] 1.1 {ratio} Normal [facility] Comment on above: Performed By: #### C MP, LIPID #### [facility] [address] [place] [address] Dr. Altagracia Martinez ALP [Catalytic activity/Vol] 56 U/L Normal 46-116 [facility] Comment on above: Performed By: #### C MP, LIPID #### [facility] [address] [place] [address] Dr. Altagracia Martinez ALT [Catalytic activity/Vol] 24 U/L Normal 14-59 [facility] Comment on above: Performed By: #### C MP, LIPID #### [facility] [address] [place] [address] Dr. Altagracia Martinez Anion gap [Moles/Vol] 11.5 mmol/L Normal [facility] Comment on above: Performed By: #### C MP, LIPID #### [facility] [address] [place] [address] Dr. Altagracia Martinez AST [Catalytic activity/Vol] 21 U/L Normal 15-37 [facility] Comment on above: Performed By: #### C MP, LIPID #### [facility] [address] [place] [address] Dr. Altagracia Martinez Bilirubin [Mass/Vol] 0.4 mg/dL Normal 0.2-1.0 [facility] Comment on above: Performed By: #### C MP, LIPID #### [facility] [address] [place] [address] Dr. Altagracia Martinez Calcium [Mass/Vol] 9.3 mg/dL Normal 8.5-10.1 [facility] Comment on above: Performed By: #### C MP, LIPID #### [facility] [address] [place] [address] Dr. Altagracia Martinez Chloride [Moles/Vol] 105 mmol/L Normal 98-107 [facility] Comment on above: Performed By: #### C MP, LIPID #### [facility] [address] [place] [address] Dr. Altagracia Martinez CO2 [Moles/Vol] 28.4 mmol/L Normal 21.0-32.0 [facility] Comment on above: Performed By: #### C MP, LIPID #### [facility] [address] [address] [address] Altagracia Martinez Creatinine [Mass/Vol] 0.71 mg/dL Normal 0.55-1.02 [facility] Comment on above: Performed By: #### C MP, LIPID #### [facility] [address] [address] [address] Altagracia Martinez EGFR-AF UKRAINIAN >60 Normal >=60 [facility] Comment on above: Performed By: #### C MP, LIPID #### [facility] [address] [place] [address] Dr. Altagracia Martinez EGFR-NON AF UKRAINIAN >60 Normal >=60 [facility] Comment on above: Performed By: #### C MP, LIPID #### [facility] [address] [address] [address] Altagracia Martinez Globulin (S) [Mass/Vol] 3.5 g/dL Normal [facility] Comment on above: Performed By: #### C MP, LIPID #### [facility] [address] [address] [address] Altagracia Martinez Glucose [Mass/Vol] 95 mg/dL Normal 74-106 [facility] Comment on above: Performed By: #### C MP, LIPID #### [facility] [address] [address] [address] Altagracia Martinez Potassium [Moles/Vol] 3.9 mmol/L Normal 3.5-5.1 [facility] Comment on above: Performed By: #### C MP, LIPID #### [facility] [address] [address] [address] Altagracia Martinez Protein [Mass/Vol] 7.5 g/dL Normal 6.4-8.2 [facility] Comment on above: Performed By: #### C MP, LIPID #### [facility] [address] [address] [address] Altagracia Martinez Sodium [Moles/Vol] 141 mmol/L Normal 136-145 [facility] Comment on above: Performed By: #### C MP, LIPID #### [facility] [address] [place], [place] [address] Dr. Altagracia Martinez Urea nitrogen [Mass/Vol] 14.0 mg/dL Normal 7.0-18.0 [facility] Comment on above: Performed By: #### C MP, LIPID #### [facility] [address] [place], [place] [address] Dr. Altagracia Martinez Urea nitrogen/Creatinin e [Mass ratio] 19.7 mg/mg Normal [facility] Comment on above: Performed By: #### C MP, LIPID #### [facility] [address] [place], [place] [address] Dr. Altagracia Martinez Vital Signs Date Time Vital Sign Value Performing Clinician Faci lity 06-23-2023 16:41-0400 Diastolic blood pressure 72 mm[Hg] John Umaña MD Work Phone: [facility] 06-23-2023 16:41-0400 Systolic blood pressure 160 mm[Hg] John Umaña MD Work Phone: [facility] 06-23-2023 15:33-0400 Heart rate 68 /min John Umaña MD Work Phone: [facility] 06-23-2023 15:29-0400 Body height 154.9 cm John Umaña MD Work Phone: [facility] 06-23-2023 15:29-0400 Body mass index (BMI) [Ratio] 25.13 kg/m2 John Umaña MD Work Phone: [facility] 06-23-2023 15:29-0400 Body weight 60.33 kg John Umaña MD Work Phone: [facility] Encounters Encounter Date Encounter Type Care Provider Facility Start: 06-23-2023 End: 06-23-2023 Office consultation new/estab patient 60 min John Umaña MD Work Phone: [facility] Comment on above: Other chest pain; BMI 25.0-25.9,adult; Never smoked tobacco; Hypertriglyceridemia; Psoriasis; Elevated BP without diagnosis of hypertension Start: 06-23-2023 End: 06-23-2023 ambulatory JOHN UMAÑA [facility] Start: 03-24-2023 End: 03-25-[facility]: [facility] Orders Only [facility] Comment on above: Encounter for screen ing mammogram for breast cancer (Primary Dx) Start: 04-25-2022 End: 04-26-[address] [facility] Facility: Procedures Date Procedure Procedure Detail Performing [...] [facility] Start: 03-24-2024 Screening for malign ant neoplasm of breast Mammogram [facility] Start: 01-28-2024 Adult BMI Follow Up Plan Adult BMI Follow Up Plan [facility] Start: 01-28-2024 Adult BMI Screening Adult BMI Screen ing [facility] Start: 01-28-2024 Tobacco Screening Tobacco Screening [facility] Start: 10-26-2023 Influenza vaccination Influenz a Vaccine (Season Ended) [facility] Start: 10-16-2023 End: 10-16-2023 Patient encounter procedure 10/16/2023 9:00 AM EDT Office Visit [facility] [address] [facility] [address] [place] [address] John Umaña MD [address] [place] [address] [address] [place], [place] [id number] [facility] Start: 03-24-2023 End: 03-24-2023 Patient encounter procedure 03/24/2023 1:15 PM EST Appointment [facility]ogram D[facility]A [address] [place] [address] [facility] Start: 03-12-2023 End: 03-12-2024 DBT Breast - bilateral screening Mammography screening bilateral with CAD Imaging Routine Encounter for screening mammogram for breast cancer Expected: 03/12/2023, Expires: 03/12/2024 [facility] Work Phone: Comment on above: Expected: 03/12/2023 , Expires: 03/12/2024 Start: 10-25-2022 COVID-19 Vaccine ( season) COVID-19 Vaccine ( season) [facility] Start: 10-25-2022 Influenza vaccination Influenza Vacc ine [facility] Start: 2016 Administration of varicella zoster vaccine Zoster (Shingles) Vaccine (1 of 2) [facility] Start: 2016 Zoster Vaccines (1 of 2) Zoste r Vaccines (1 of 2) [facility] Start: 1988 DTaP/Tdap/Td Vaccine s (1 - Tdap) DTaP/Tdap/Td Vaccines (1 - Tdap) [facility] Start: 09-22-1987 Screening for malign ant neoplasm of cervix [facility] Start: 1985 DTaP,Tdap and Td Vac cines (1 - Tdap) DTaP,Tdap and Td Vaccines (1 - Tdap) [facility] Start: 1984 Diabetes mellitus screening Diabetes Screening [facility] Start: 1984 Hepatitis C screening Hepatitis C Sc reening [facility] Start: 1978 Depression Screening Depression Scre ening [facility] Start: 09-22-1967 MMR Vaccines (1 of 1 - Standard series) MMR Vaccines (1 of 1 - Standard series) [facility] Start: 1966 HIV screening HIV Screening [facility] Start: 1966 Lipid panel Lipid Panel [facility] Start: 1966 Screening for malign ant neoplasm of colon [facility] Start: 1966 Yearly Adult Physical Yearly Adult P hysical [facility] Payers Date Payer Category Payer Private Health Insurance [id number] 1966 Unknown [id number] 1966 Unknown [id number] 1966 Unknown [id number] 1959 Unknown [id number] Social History Date Type Detail Facility Start: 01-21-2022 End: 06-23-2023 Tobacco smoking status NHIS Never smoked tobacco [facility] Start: 01-21-2022 End: 06-23-2023 Tobacco use and exposure Smokeless tobacco non-user [facility] Start: 01-27-2023 Alcohol intake Current drinke r of alcohol (finding) [facility] Start: 01-27-2023 End: 06-23-2023 History of Social function [facility] Start: 01-27-2023 End: 06-23-2023 Tobacco use panel [facility] Within the past 12 months we worried whether our food would run out before we got money to buy more. Never True [facility] Start: 01-21-2022 Alcohol Comment socially [facility] Start: 1965 Sex Assigned At Not on file [facility] Start: 06-23-2023 Alcoholic beverage intake Ex-drinker (finding) [facility] Work Phone: Start: 06-13-2023 End: 06-23-2023 Exposure to SARS-CoV-2 (event) Not sure [facility] History of Present illness Narrative 06-23-2023 John Umaña MD - 06/23/2023 3:15 PM EDT Note Date & Type Note Facility 06-23-2023 History of Present illness Narrative Referred by Dr.Michael Arias for New Patient Visit (Chest pain) History Of Present Illness: Francisca Tineo is a 57 y.o. female presenting with [...] Instructions aspirin 81 mg, oral, Daily omega 1-ceu-hjs-fish oil (Fish OiL) 1,000 mg (120 mg-180 [...] 25.0-25.9,adult Never smoked tobacco Hypertriglyceridemia - omega 4-hnd-zrx-fish oil (Fish OiL) 1,000 mg (120 mg-180 mg) capsule; Take 2 capsules (2,000 mg) by mouth 2 times a day. Psoriasis Elevated BP without diagnosis of hypertension 1. Other chest pain Follow Up In Cardiology ECG 12 Lead 2. BMI 25.0-25.9,adult 3. Never smoked tobacco 4. Hypertriglyceridemia omega 6-tli-cfv-fish oil (Fish OiL) 1,000 mg (120 mg-180 [...] further questions arise, Sincerely, John Umaña MD [facility] Provider Attestation - Scribe documentation All medical record entries made by the Scribe were at my direction and personally dictated by me. I have reviewed the chart and agree that the record accurately reflects my personal performance of the history, physical exam, discussion and plan. documented in this encounter [facility] [place] Work Phone: Instructions 04-29-2024 Patient Instructions Note Date & Type Note [...] in office today documented in this encounter [facility] [place] Work Phone: Note 03-12-2023 Telephone Encounter - [...] Dr Trevino on 01/27/23 [facility] 03-12-2023 Telephone Encounter - Astrid Price LPN - 03/12/2023 2:03 PM EST Note Date & Type Note Facility 03-12-2023 Telephone encount er Note [facility] Evaluation note Note Date & Type Note Facility Evaluation note Diagnosis Encounter for screening mammogram for breast cancer- Primary documented in this encounter [facility] Evaluation note Note Date & Type Note Facility Evaluation note Diagnosis Other chest pain BMI 25.0-25.9,adult Never smoked tobacco Hypertriglyceridemia Pure hyperglyceridemia Psoriasis Other psoriasis Elevated BP without diagnosis of hypertension documented in this encounter [facility] [place] Work Phone: Instructions Note Date & Type [...] ECG 12 Lead John Umaña MD [address] [address] Referral ID Status Reason Start Date Expiration Date V isits Requested Visits Authorized [id number] Authorized 06/23/2023 06/22/2024 1 1 Specialty Diagnoses / Procedures Referred By Contac t Referred To Contact Cardiology Diagnoses Other chest pain Procedures Follow Up In Cardiology John Umaña MD [address] [address] John Umaña MD [address] [place] [id number] Referral ID Status Reason Start Date Expiration Date V isits Requested Visits Authorized [id number] Authorized 06/23/2023 06/22/2024 1 1 Additional Source Comments INFORMATION SOURCE (unrecogn ized section and content) DATE CREATED AUTHOR 05/02/2022 [facility] DATE CREATED AUTHOR AUTHOR'S ORGANIZ ATION 03/28/2023 [facility] DATE CREATED AUTHOR AUTHOR'S ORGANIZ ATION 10/06/2023 [facility] [employer] (unrecognized sec tion and content) 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 Relationship Specialty Start Date End Date Ventura Arias MD [address] [place] [address] PCP - General Family Medicine 03/19/22 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 Relationship Specialty Start Date End Date Ventura Arias MD [address] [place] [address] PCP - General Family Medicine 06/20/23 Reason for Visit (unrecogniz ed section and content) Reason Comments New Patient Visit Chest pain Specialty Diagnoses / Procedures Referred By Contritika t Referred To Contact Diagnoses Other chest pain Procedures ECG 12 Lead John Umaña MD 254 [facility] [address] [place] [address] Referral ID Status Reason Start Date Expiration Date V isits Requested Visits Authorized [id number] Authorized 06/23/2023 06/22/2024 1 1 FOR RECORDS [...] BE BASED ON THE PRIMARY CLINICAL RECORDS. [facility] [employer] provides no warranty or guarantee of the accuracy or completeness of information in this document.
[2023-10-08 08:59] LABS: Alanine Aminotransferase 23 U/L (14-59); Albumin Globulin Ratio 1.1; Albumin Level 3.7 g/dL (3.4-5.0); Alkaline Phosphatase 48 U/L (46-116); Aspartate Amino Transferase 18 U/L (15-37); Bilirubin Direct 0.1 mg/dL (0.0-0.2); Bilirubin Total 0.5 mg/dL (0.2-1.0); Chol HDL Ratio 3.9; Cholesterol 217 mg/dL (<=200); Globulin 3.3 g/dL; HDL Cholesterol 55 mg/dL (40-60); Triglycerides 108 mg/dL (<=150); VLDL CHOLESTEROL 21.6 mg/dL
== END 2023-10-08 07:29 | disposition home or self-care (01) ==
LOC: LAB 07:28
PROVIDERS: PCP Family Medicine; Visit Provider Family Medicine
DX: E78.1 Pure hyperglyceridemia (principal)
CPT/HCPCS: 36415; 80061; 80076

== ENCOUNTER 2024-09-07 06:30 | Outpatient (OUT) | payer OTHER, SELFPAY ==
[2024-09-07 08:04] LABS: Hematocrit 39.9 % (36.0-48.0); Hemoglobin 13.0 g/dL (12.0-16.0); Immature Granulocytes Abs Auto 0.01 10^3/uL (0.00-0.03); Immature Granulocytes Pct Auto 0.1 % (0.0-0.5); Lymphocytes Absolute Auto 2.8 10^3/uL (1.2-3.8); Mean Corpuscular HGB Conc 32.6 g/dL (29.9-35.2); Mean Corpuscular Hemoglobin 30.9 pg (26.7-34.0); Mean Corpuscular Volume 94.8 fL (81.0-99.0); Platelet Count 338 10^3/uL (150-450); Red Blood Count 4.21 10^6/uL (4.20-5.40); White Blood Count 7.0 10^3/uL (4.0-11.0)
[2024-09-07 08:36] LABS: Alanine Aminotransferase 24 U/L (14-59); Albumin Globulin Ratio 1.1; Albumin Level 3.6 g/dL (3.4-5.0); Alkaline Phosphatase 53 U/L (46-116); Anion Gap 11.5; Aspartate Amino Transferase 23 U/L (15-37); Blood Urea Nitrogen 17.0 mg/dL (7.0-18.0); Calcium 9.1 mg/dL (8.5-10.1); Carbon Dioxide 29.7 mmol/L (21.0-32.0); Chloride 108 mmol/L (98-107); Cholesterol 254 mg/dL (<=200); Estimated GFR (African America >60 (>=60 mL/min/1.73m^2); Estimated GFR (Non-African Ame >60 (>=60 mL/min/1.73m^2); Globulin 3.3 g/dL; Glucose 97 mg/dL (74-106); HDL Cholesterol 48 mg/dL (40-60); Potassium 4.2 mmol/L (3.5-5.1); Sodium 145 mmol/L (136-145); Thyroid Stimulating Hormone 1.957 uIU/mL (0.358-3.740); Total Protein 6.9 g/dL (6.4-8.2); Triglycerides 221 mg/dL (<=150); VLDL CHOLESTEROL 44.2 mg/dL
[2024-09-07 08:39] LABS: Iron 86.0 ug/dL (50.0-170.0)
== END 2024-09-07 06:31 | disposition home or self-care (01) ==
LOC: LAB 09-08 08:46
PROVIDERS: PCP Family Medicine; Visit Provider Family Medicine
DX: Z00.00 Encounter for general adult medical examination without abnormal findings (principal)
CPT/HCPCS: 36415; 80053; 80061; 82306; 83036; 83540; 84436; 84439; 84443; 85025